=== PATIENT | female | born 1955 | race African-American/Black ===

== ENCOUNTER 2019-07-02 11:12 | Inpatient (IN) | payer MEDICAID ==
[~2019-07-02] VITALS: Ht 165.1 cm; Wt 61.2 kg
--- NOTE | 2019-07-02 11:25 | NUR ---
PT S IN ROOM #1B. DR JOHNSTON EVALUATED THE PT.
[2019-07-02] MEDS ORDERED: IV NORMAL SALINE 500 ML BAG IV ONE (11:30)
[2019-07-02] MEDS ORDERED: LEVA0.6320 IH (11:33)
[2019-07-02] MEDS ORDERED: GUAI200T5 GT (11:33)
[2019-07-02] MEDS ORDERED: BISA10SU95 RC (11:33)
[2019-07-02] MEDS ORDERED: VALP250S3 GT (11:33)
[2019-07-02] MEDS ORDERED: BLOO-140 IN (11:33)
[2019-07-02] MEDS ORDERED: METO100T14 GT (11:33)
[2019-07-02] MEDS ORDERED: ATOR10TA GT (11:33)
[2019-07-02] MEDS ORDERED: DIGO125T GT (11:33)
[2019-07-02] MEDS ORDERED: DOCU50LI GT (11:33)
[2019-07-02] MEDS ORDERED: ZINC1CAP2 GT (11:33)
[2019-07-02] MEDS ORDERED: ASCO500T10 GT (11:33)
[2019-07-02] MEDS ORDERED: PROT946L GT (11:33)
[2019-07-02] MEDS ORDERED: WARF4TAB41 GT (11:33)
[2019-07-02] MEDS ORDERED: ACET325T53 GT (11:33)
[2019-07-02] MEDS ORDERED: LACT1TAB20 GT (11:33)
[2019-07-02] MEDS ORDERED: LISI10TA5 GT (11:33)
[2019-07-02] MEDS ORDERED: ESCI10TA GT (11:33)
[2019-07-02] MEDS ORDERED: ACET325T53 PO (11:33)
[2019-07-02] MEDS ORDERED: LEVE500S9 GT (11:33)
[2019-07-02 11:58] LABS: BASOPHILS % (AUTO) 0.6 % (0.0-2.0); LYMPHOCYTES # (AUTO) 1.8 K/uL (20.0-40.0); MEAN CORPUSCULAR HEMOGLOBIN 30.9 uug (24.7-32.8); MONOCYTES # (AUTO) 0.3 K/uL (2.0-10.0); NEUTROPHILS % (AUTO) 54.7 % (38.5-71.5)
[2019-07-02 12:03] LABS: EOSINOPHILS # (AUTO) 0.5 K/uL (0.0-0.7); EOSINOPHILS % (AUTO) 9.2 % (0.0-7.0); LYMPHOCYTES % (AUTO) 30.8 % (20.5-51.5); MEAN CORPUSCULAR HGB CONC 32 g/dL (32.3-35.6); MEAN CORPUSCULAR VOLUME 95.7 fL (75.5-95.3); MONOCYTES % (AUTO) 4.7 % (0.0-11.0); NEUTROPHILS # (AUTO) 3.2 K/uL (1.8-8.9); PLATELET COUNT (AUTO) 311 K/uL (179-408); RED BLOOD CELL COUNT(AUTO) 2.31 MIL/uL (3.63-4.92); WHITE BLOOD COUNT (AUTO) 5.9 K/uL (3.8-11.8)
[2019-07-02 12:06] LABS: HEMOGLOBIN 7.1 g/dL (10.9-14.3)
[2019-07-02 12:08] LABS: HEMATOCRIT 22.1 % (31.2-41.9)
[2019-07-02] MEDS ORDERED: AZITHROMYCIN 500MG/ D5W 250ML IVPB **ER PYXIS ONLY IV ONE (12:14)
[2019-07-02] MEDS ORDERED: AZITHROMYCIN IV 500 MG in IV DEXTROSE 5% 250 ML IV ONE (12:15)
[2019-07-02 12:23] LABS: CREATININE 0.6 mg/dL (0.6-1.3); TOTAL PROTEIN, SERUM 9.2 g/dL (6.4-8.2)
[2019-07-02] MEDS ORDERED: ACETAMINOPHEN 325 MG TABLET PO PRN (12:30)
[2019-07-02] MEDS ORDERED: MAGNESIUM HYDROXIDE 30 ML LIQUID UDC GT PRN (12:30)
[2019-07-02] MEDS ORDERED: ONDANSETRON 4 MG/2 ML VIAL IV PRN (12:30)
[2019-07-02] MEDS ORDERED: Z GUARD REMEDY PASTE 57 GM TUBE TOP PRN (12:30)
[2019-07-02] MEDS ORDERED: HYDROCODONE/APAP 5-325MG TABLET GT PRN ×2 (12:30→16:30)
[2019-07-02] MEDS ORDERED: TEMAZEPAM 15 MG CAPSULE PO PRN (12:30)
[2019-07-02] MEDS ORDERED: MORPHINE SULFATE 2 MG/1 ML DISP.SYRIN IV PRN (12:30)
[2019-07-02 12:36] LABS: BILIRUBIN,DIRECT 0.1 mg/dL (0.0-0.2); BILIRUBIN,TOTAL 0.3 mg/dL (0.1-1.0); POTASSIUM 5.2 mmol/L (3.5-5.1)
[2019-07-02] MEDS ORDERED: SODIUM POLYSTYRENE SULFONATE 15 G/60 ML LIQUID UDC GT ONE (13:00)
[2019-07-02] MEDS ORDERED: FUROSEMIDE 40 MG/4 ML VIAL IV ONE (13:00)
[2019-07-02] MEDS ORDERED: BISACODYL 10 MG SUPP.RECT RC PRN (13:00)
[2019-07-02] MEDS ORDERED: ALBUTEROL SULFATE 2.5 MG/3 ML NEBU NEB PRN (13:15)
[2019-07-02] MEDS ORDERED: TEMAZEPAM 15 MG CAPSULE GT PRN (13:15)
--- NOTE | 2019-07-02 13:32 | NUR ---
REPORT WAS GIVEN TO ASSISTANT ELEMENTARY TEACHER. PT WAS TRANSFERED TO ROOM #316.
[2019-07-02 13:38] LABS: *BILIRUBIN,URIN NEGATIVE (NEGATIVE); *BLOOD, URINE NEGATIVE (NEGATIVE); *COLOR,URINE YELLOW (YELLOW); *KETONES,URINE NEGATIVE (NEGATIVE); LEUKOCYTE ESTERASE ,URINE 1+ (NEGATIVE); NITRITE, URINE NEGATIVE (NEGATIVE); UGLUCOSE NEGATIVE (NEGATIVE)
--- NOTE | 2019-07-02 13:40 | NUR ---
Patient was transported from ER via gurney in stable condition. Patient with Diagnosis of Severe anemia and Possible GI bleed under care of Dr. Alvarado. Patient is awake and responsive. On Oxygen at 2 L/min, No signs of Pain or discomfort. GTube is patent with clean dry dressing. Patient will have EGD under Dr. Lockwood on 07/03/19 at 4PM, RP daughter signed the consent. All needs attended and met, kept clean and comfortable. Will continue to monitor.
[2019-07-02] MEDS ORDERED: CEFTRIAXONE 1 G in IV DEXTROSE 5% 50 ML IV SCH (14:00)
--- NOTE | 2019-07-02 14:00 | NUR ---
Clarified Order of PRBC by SUMAYA Alvarado, per Dr. Alvarado he did not Order Blood transfusion, unless Hgb is below 7. Called labs and cancelled the PRB that was ordered from the ER by Dr. Anton.
[2019-07-02 14:01] LABS: *CLARITY,URINE SLIGHTLY HAZY (CLEAR)
[2019-07-02 14:03] LABS: MUCUS,URINE FEW /LPF (0-FEW); SQUAMOUS EPITHELIAL CELL,UR FEW /HPF (NONE SEEN)
[2019-07-02] MEDS: VALPROIC ACID 250 MG/5 ML LIQUID UDC GT SCH ×2 (15:07→18:10)
[2019-07-02 15:15] VITALS: BP 101/36
--- NOTE | 2019-07-02 18:27 | NUR ---
Patient in Bed, awake. No signs of distress noted. No SOB. No signs of Pain or discomfort. Patient will have EGD tomorrow at 4PM. RP signed consent. Will endorse to Oncoming Nurse.
[2019-07-02] MEDS ORDERED: ACETAMINOPHEN 325 MG TABLET GT PRN (18:30)
[2019-07-02 20:00] VITALS: BP 128/43
[2019-07-02] MEDS ORDERED: LEVETIRACETAM 250 MG TABLET GT SCH (21:00)
[2019-07-02] MEDS ORDERED: LEVETIRACETAM 250 MG TABLET PO SCH (21:00)
[2019-07-02] MEDS: LEVETIRACETAM 500 MG/5 ML LIQUID UDC GT SCH (21:18)
[2019-07-02] MEDS: METOPROLOL TARTRATE 50 MG TABLET GT SCH (21:19)
[2019-07-02] MEDS: PANTOPRAZOLE SODIUM 40 MG VIAL IV SCH (21:19)
[2019-07-02] MEDS: ATORVASTATIN 10 MG TABLET GT SCH (21:19)
[2019-07-03] VITALS: BP 135/64
[2019-07-03 04:00] VITALS: BP 112/50
[2019-07-03 06:23] LABS: BASOPHILS % (AUTO) 0.6 % (0.0-2.0); EOSINOPHILS # (AUTO) 0.5 K/uL (0.0-0.7); EOSINOPHILS % (AUTO) 8.8 % (0.0-7.0); HEMOGLOBIN 7.7 g/dL (10.9-14.3); LYMPHOCYTES # (AUTO) 1.6 K/uL (20.0-40.0); LYMPHOCYTES % (AUTO) 28.6 % (20.5-51.5); MEAN CORPUSCULAR HEMOGLOBIN 30.2 uug (24.7-32.8); MEAN CORPUSCULAR HGB CONC 32 g/dL (32.3-35.6); MEAN CORPUSCULAR VOLUME 93.8 fL (75.5-95.3); MONOCYTES # (AUTO) 0.3 K/uL (2.0-10.0); MONOCYTES % (AUTO) 5.1 % (0.0-11.0); NEUTROPHILS # (AUTO) 3.1 K/uL (1.8-8.9); NEUTROPHILS % (AUTO) 56.9 % (38.5-71.5); PLATELET COUNT (AUTO) 302 K/uL (179-408); RED BLOOD CELL COUNT(AUTO) 2.56 MIL/uL (3.63-4.92); WHITE BLOOD COUNT (AUTO) 5.4 K/uL (3.8-11.8)
[2019-07-03 06:48] LABS: CREATININE 0.6 mg/dL (0.6-1.3); MAGNESIUM 2.3 mg/dL (1.8-2.4); PHOSPHOROUS 4.4 mg/dL (2.5-4.9); POTASSIUM 4.2 mmol/L (3.5-5.1)
--- NOTE | 2019-07-03 06:56 | NUR ---
RECEIVED PATIENT IN BED, AO X 1. NO SHORTNESS OF BREATH OR DISTRESS NOTED. A. FIB/ A. FLUTTER ON THE TELE MONITOR WITH HEART RATE IN THE 70s. IMMEDIATE NEEDS ATTENDED. WILL CONTINUE TO MONITOR.
--- NOTE | 2019-07-03 06:57 | NUR ---
PATIENT SLEPT WELL THROUGHOUT THE NIGHT. G-TUBE MEDICATIONS TOLERATED WITH MINIMAL RESIDUAL. PATIENT ALSO GIVEN PAIN MEDICATION BECAUSE PATIENT MOANING AND HAD FACIAL GRIMACING CONCURRENTLY FOR A PERIOD OF TIME. MEDICATED APPROPRIATELY WITH PRN PAIN MEDICATION. NPO AFTER MIDNIGHT. A. FIB/ A FLUTTER ON THE MONITOR WITH VENTRICULAR PACING, HEART RATE IN THE 70s.
[2019-07-03 07:02] LABS: *OCCULT BLOOD STOOL NEGATIVE (NEGATIVE)
[2019-07-03] MEDS ORDERED: ESCITALOPRAM OXALATE 10 MG TABLET GT SCH (09:00)
[2019-07-03] MEDS ORDERED: MORPHINE SULFATE 4 MG/1 ML DISP.SYRIN IV PRN (10:45)
[2019-07-03] MEDS: CEFTRIAXONE 1 G in IV DEXTROSE 5% 50 ML IV SCH (11:39)
[2019-07-03 12:00] VITALS: BP 136/64
[2019-07-03] MEDS ORDERED: AZITHROMYCIN IV 500 MG in IV DEXTROSE 5% 250 ML IV SCH (12:00)
[2019-07-03] MEDS: PANTOPRAZOLE SODIUM 40 MG VIAL IV SCH ×2 (12:09→21:25)
[2019-07-03] MEDS: VALPROIC ACID 250 MG/5 ML LIQUID UDC GT SCH ×3 (13:00→17:40)
[2019-07-03 14:55] VITALS: BP 121/48
--- NOTE | 2019-07-03 15:19 | NUR ---
Patient daughter request for deep nasal suction, Respiratory Therapist eval and declines treatment at this time. Says patient lung sounds clear. Investigative Agent defers this as it may make patient breathing more of a problem than benefit. Patient oral suction by operative team prior to transfer down to perform procedure. Brenton Calderon RN
[2019-07-03 16:17] VITALS: BP 136/64
[2019-07-03] MEDS ORDERED: WARFARIN SODIUM 5 MG TABLET GT ONE (17:30)
[2019-07-03] MEDS: DIGOXIN 125 MCG TABLET GT SCH (17:40)
[2019-07-03] MEDS: ZINC SULFATE 220 MG CAPSULE GT SCH (17:40)
[2019-07-03] MEDS: METOPROLOL TARTRATE 50 MG TABLET GT SCH ×2 (17:40→21:00)
[2019-07-03] MEDS: ASCORBIC ACID 500 MG TABLET GT SCH (17:40)
[2019-07-03] MEDS: LISINOPRIL 10 MG TABLET GT SCH (17:40)
[2019-07-03] MEDS: DOCUSATE SODIUM 100 MG/10 ML LIQUID UDC GT SCH (17:40)
[2019-07-03] MEDS: LEVETIRACETAM 500 MG/5 ML LIQUID UDC GT SCH ×2 (17:41→21:25)
[2019-07-03] MEDS ORDERED: JEVITY 1.2 1000 ML LIQUID GT PRN (18:00)
--- NOTE | 2019-07-03 19:40 | NUR ---
RECEIVED PATIENT AWAKE IN BED WITH FAMILY MEMBERS AT THE BEDSIDE. AO X 1. PATIENT NONVERBAL. IV IN RIGHT FOREARM 20G FLUSHING, PATENT, AND INTACT. NO SHORTNESS OF BREATH NOTED. TELE MONITOR SHOWS A. FIB WITH VENTRICULAR PACING WITH HEART RATE IN THE 70s. SAFETY PRECAUTIONS IN PLACE. WILL CONTINUE TO MONITOR PATIENT.
[2019-07-03] MEDS: ACETAMINOPHEN 650 MG/20.3 ML LIQUID UDC GT PRN (20:03)
[2019-07-03] MEDS ORDERED: CEFAZOLIN 1 G VIAL IM ONE (20:09)
[2019-07-03] MEDS ORDERED: IV LACTATED RINGERS SOLUTION 1,000 ML BAG IV ONE (20:09)
[2019-07-03] MEDS ORDERED: ETOMIDATE 20 MG/10 ML VIAL IV ONE (20:09)
[2019-07-03] MEDS ORDERED: LIDOCAINE-MPF 2% 5 ML VIAL IJ ONE (20:09)
[2019-07-03] MEDS ORDERED: IRR STERIL WATER FOR IRR 1000 ML BOTTLE IR ONE (20:09)
[2019-07-03 20:20] VITALS: BP 113/46
[2019-07-03] MEDS: ATORVASTATIN 10 MG TABLET GT SCH (21:25)
[2019-07-03] MEDS: ENOXAPARIN SODIUM 60 MG/0.6 ML DISP.SYRIN SQ SCH (22:00)
[2019-07-04 00:40] VITALS: BP 98/40
[2019-07-04 00:50] VITALS: BP 100/44
[2019-07-04] MEDS ORDERED: IV NORMAL SALINE 500 ML IV ONE ×2 (01:45→15:00)
--- NOTE | 2019-07-04 02:00 | NUR ---
PATIENT HAS HYPOTENSION WITH MULTIPLE READINGS IN THE 80's/40's. CONTACTED DR. SAEED GOLDSMITH AND RECEIVED ORDER TO GIVE 500ML OF NS BOLUS.
--- NOTE | 2019-07-04 03:30 | NUR ---
IV BOLUS FINISHED, PATIENT TOLERATED BOLUS WITH NO ACUTE CHANGE IN CONDITION. BLOOD PRESSURE READINGS NORMALIZED IN THE 100/110's (SBP) AND DBP IN THE 50's
[2019-07-04 05:31] VITALS: BP 120/53
[2019-07-04 06:49] LABS: CREATININE 0.8 mg/dL (0.6-1.3); POTASSIUM 3.2 mmol/L (3.5-5.1)
[2019-07-04 06:54] LABS: BASOPHILS % (AUTO) 0.5 % (0.0-2.0); EOSINOPHILS # (AUTO) 0.4 K/uL (0.0-0.7); EOSINOPHILS % (AUTO) 7.6 % (0.0-7.0); HEMATOCRIT 24.6 % (31.2-41.9); HEMOGLOBIN 8.1 g/dL (10.9-14.3); LYMPHOCYTES # (AUTO) 1.7 K/uL (20.0-40.0); LYMPHOCYTES % (AUTO) 37.7 % (20.5-51.5); MEAN CORPUSCULAR HEMOGLOBIN 31.6 uug (24.7-32.8); MEAN CORPUSCULAR HGB CONC 33 g/dL (32.3-35.6); MEAN CORPUSCULAR VOLUME 95.6 fL (75.5-95.3); MONOCYTES # (AUTO) 0.3 K/uL (2.0-10.0); MONOCYTES % (AUTO) 6.4 % (0.0-11.0); NEUTROPHILS # (AUTO) 2.2 K/uL (1.8-8.9); NEUTROPHILS % (AUTO) 47.8 % (38.5-71.5); PLATELET COUNT (AUTO) 268 K/uL (179-408); RED BLOOD CELL COUNT(AUTO) 2.57 MIL/uL (3.63-4.92); WHITE BLOOD COUNT (AUTO) 4.6 K/uL (3.8-11.8)
--- NOTE | 2019-07-04 07:25 | NUR ---
RECEIVED PATIENT RESTING IN BED. NO ACUTE DISTRESS NOTED. BED IN LOWEST POSITION, SIDE RAILS UP X2, CALL LIGHT WITHIN REACH. WILL CONTINUE TO MONITOR.
[2019-07-04] MEDS ORDERED: PROTEIN SUPPLEMENT (PROSTAT) 30 ML LIQUID GT SCH (08:00)
[2019-07-04] MEDS: VALPROIC ACID 250 MG/5 ML LIQUID UDC GT SCH ×3 (08:16→16:41)
[2019-07-04] MEDS: LEVETIRACETAM 500 MG/5 ML LIQUID UDC GT SCH (08:16)
[2019-07-04] MEDS: DOCUSATE SODIUM 100 MG/10 ML LIQUID UDC GT SCH (08:16)
[2019-07-04] MEDS: ZINC SULFATE 220 MG CAPSULE GT SCH (08:17)
[2019-07-04] MEDS: METOPROLOL TARTRATE 50 MG TABLET GT SCH (08:17)
[2019-07-04] MEDS: ASCORBIC ACID 500 MG TABLET GT SCH (08:17)
[2019-07-04] MEDS: PANTOPRAZOLE SODIUM 40 MG VIAL IV SCH (08:17)
[2019-07-04] MEDS: LISINOPRIL 10 MG TABLET GT SCH (08:17)
[2019-07-04] MEDS: DIGOXIN 125 MCG TABLET GT SCH (08:17)
[2019-07-04] MEDS: ENOXAPARIN SODIUM 60 MG/0.6 ML DISP.SYRIN SQ SCH (08:18)
[2019-07-04] MEDS: ACETAMINOPHEN 650 MG/20.3 ML LIQUID UDC GT PRN ×2 (09:15→18:34)
[2019-07-04] MEDS: CEFTRIAXONE 1 G in IV DEXTROSE 5% 50 ML IV SCH (10:47)
[2019-07-04 11:14] VITALS: BP 98/43
[2019-07-04] MEDS ORDERED: POTASSIUM CHLORIDE 20 MEQ POWDER PACKET GT ONE (11:30)
[2019-07-04] MEDS ORDERED: CEPH-570 GT (11:30)
[2019-07-04 15:12] VITALS: BP 117/47
[2019-07-04] MEDS ORDERED: WARFARIN SODIUM 4 MG TABLET PO SCH (17:00)
--- NOTE | 2019-07-04 18:42 | NUR ---
PATIENT RESTED INTERMITTENTLY THROUGHOUT DAY. PATIENT BP RUNNING LOW IV BOLUS ADMINISTERED. GTUBE PATIENT. NO ACUTE DISTRESS NOTED THROUGHOUT SHIFT. SAFETY MEASURES PROVIDED. WILL ENDORSE TO ONCOMING NURSE.
--- NOTE | 2019-07-04 20:05 | NUR ---
PT WHEELED OUT VIA GURNEY BY [id number]. PT IN NO ACUITE DISTRESS. DISCHARGE PAPERS GIVEN TO KRANTHI LONDON. [facility]SE. ID BAND TAKEN OFF. IV TAKEN OFF. G-TUBE CLAMP. SAFETY PROVIDED. PT ON 3L NASAL CANNULA. PT VITAL SIGNS WITHIN NORMAL LIMIT. PT STABLE.
[2019-07-05] MEDS ORDERED: WARFARIN SODIUM 4 MG TABLET PO SCH ×2 (17:00)
== END 2019-07-04 20:10 | DRG 241 ==
LOC: ER 11:12 → TELE3 13:05
PROVIDERS: ADMIT Nurse Practitioner Acute Care; ATTEND Nurse Practitioner Acute Care
PROC: 0D20XUZ Change Feeding Device in Upper Intestinal Tract, External Approach (ICD-10-PCS; principal; 2019-07-03)
PROC: 0DJ08ZZ Inspection of Upper Intestinal Tract, Via Natural or Artificial Opening Endoscopic (ICD-10-PCS; principal; 2019-07-03)
DX: K29.71 Gastritis, unspecified, with bleeding (principal); G93.41 Metabolic encephalopathy; I50.33 Acute on chronic diastolic (congestive) heart failure; R53.2 Functional quadriplegia; K94.29 Other complications of gastrostomy; D68.59 Other primary thrombophilia; E11.51 Type 2 diabetes mellitus with diabetic peripheral angiopathy without gangrene; I11.0 Hypertensive heart disease with heart failure; E87.5 Hyperkalemia; I48.19 Other persistent atrial fibrillation; R13.10 Dysphagia, unspecified; I49.5 Sick sinus syndrome; E11.9 Type 2 diabetes mellitus without complications; G40.909 Epilepsy, unspecified, not intractable, without status epilepticus; Z79.01 Long term (current) use of anticoagulants; Z95.0 Presence of cardiac pacemaker; I69.391 Dysphagia following cerebral infarction; Z74.01 Bed confinement status; Z95.2 Presence of prosthetic heart valve; Z87.440 Personal history of urinary (tract) infections; Z79.899 Other long term (current) drug therapy; I25.10 Atherosclerotic heart disease of native coronary artery without angina pectoris; I69.320 Aphasia following cerebral infarction; I69.354 Hemiplegia and hemiparesis following cerebral infarction affecting left non-dominant side; N39.0 Urinary tract infection, site not specified; B96.89 Other specified bacterial agents as the cause of diseases classified elsewhere; F41.9 Anxiety disorder, unspecified; F03.90 Unspecified dementia, unspecified severity, without behavioral disturbance, psychotic disturbance, mood disturbance, and anxiety; E78.5 Hyperlipidemia, unspecified; I09.9 Rheumatic heart disease, unspecified; D50.0 Iron deficiency anemia secondary to blood loss (chronic)
CPT/HCPCS: 36415; 70030-TC; 71045; 83605; 83735; 84100; 85025; 85610; 85730; 86850; 86900; 86901; 86920; 87040; 87086; 87400; 93005; 93307; A4217; A4663; C1758; C9113; G0378; J0456; J0690; J0696; J1650; J1940; J2270; J3490; J7040; J7060; J7120

== ENCOUNTER 2020-02-05 00:01 | Inpatient (IN) | payer MEDICAID ==
[2020-02-05] VITALS (12 sets, daily range): BP systolic 115–154; BP diastolic 55–96
[~2020-02-05] VITALS: Ht 165.1 cm; Wt 74.8 kg
[~2020-02-05 00:01] MED LIST: ACET325T53 GT; ACET325T53 PO; ASCO500T10 GT; ATOR10TA GT; BISA10SU95 RC; BLOO-140 IN; CEPH-570 GT; DIGO125T GT; DOCU50LI GT; ESCI10TA GT; GUAI200T5 GT; LACT1TAB20 GT; LEVA0.6320 IH; LEVE500S9 GT; LISI10TA5 GT; METO100T14 GT; PROT946L GT; VALP250S3 GT; WARF4TAB41 GT; ZINC1CAP2 GT
[2020-02-05] MEDS ORDERED: SENNA (00:36)
[2020-02-05] MEDS ORDERED: METO100T14 GT (00:36)
[2020-02-05] MEDS ORDERED: FERR220S14 GT (00:36)
[2020-02-05] MEDS ORDERED: SIMV20TA2 GT (00:36)
[2020-02-05] MEDS ORDERED: INSU100V39 SQ (00:36)
[2020-02-05] MEDS ORDERED: ONDA4VIA52 IV (00:36)
[2020-02-05] MEDS ORDERED: HYDR100V6 IV (00:36)
[2020-02-05] MEDS ORDERED: IPRA0.2S6 NEB (00:36)
[2020-02-05] MEDS ORDERED: LORA0.5T GT (00:36)
[2020-02-05] MEDS ORDERED: ERGO500014 GT (00:36)
[2020-02-05] MEDS ORDERED: DOCUSATE (00:36)
[2020-02-05] MEDS ORDERED: CEFTRIAXONE 1 G in IV DEXTROSE 5% 50 ML IV ONE (01:00)
[2020-02-05] MEDS ORDERED: AZITHROMYCIN IV 500 MG in IV DEXTROSE 5% 250 ML IV ONE (01:00)
[2020-02-05 01:15] LABS: ABG BASE EXCESS 5.6 mmol/L; ABG HCO3 29.8 mmol/L; ABG PCO2 41.9 mmHg (35.0-45.0); ABG PO2 127.3 mmHg (75.0-100.0); ABG SITE LEFT RADIAL; ABG TOTAL HEMOGLOBIN 8.8 G/dL (12.0-16.0); COHb 1.6 % (0.5-1.5); MetHb 0.4 % (0.0-1.5); O2Hb 97.1 % (94.0-97.0); VENT MODE Nasal Cannula
[2020-02-05] MEDS ORDERED: CEFTRIAXONE /D5W 50ML IVPB **ER PYXIS IV ONE (01:31)
--- NOTE | 2020-02-05 02:00 | NUR ---
Unable to draw blood from pt multiple times. Dr. Pastor stated okay to start ATB
[2020-02-05 02:35] LABS: *BILIRUBIN,URIN NEGATIVE (NEGATIVE); *CLARITY,URINE CLEAR (CLEAR); *COLOR,URINE YELLOW (YELLOW); *KETONES,URINE NEGATIVE (NEGATIVE); LEUKOCYTE ESTERASE ,URINE TRACE (NEGATIVE); NITRITE, URINE NEGATIVE (NEGATIVE); PH,URINE >=9.0 (5.0-8.0); UGLUCOSE NEGATIVE (NEGATIVE)
[2020-02-05 02:36] LABS: *BLOOD, URINE TRACE LYSED (NEGATIVE)
[2020-02-05 02:40] LABS: BASOPHILS # (AUTO) 0.1 K/uL (0.0-8.0); BASOPHILS % (AUTO) 0.9 % (0.0-2.0); EOSINOPHILS # (AUTO) 0.1 K/uL (0.0-0.7); HEMATOCRIT 25.2 % (31.2-41.9); HEMOGLOBIN 8.2 g/dL (10.9-14.3); LYMPHOCYTES % (AUTO) 22.3 % (20.5-51.5); MEAN CORPUSCULAR HEMOGLOBIN 31.7 uug (24.7-32.8); MEAN CORPUSCULAR HGB CONC 33 g/dL (32.3-35.6); MONOCYTES # (AUTO) 0.4 K/uL (2.0-10.0); MONOCYTES % (AUTO) 4.1 % (0.0-11.0); NEUTROPHILS # (AUTO) 6.3 K/uL (1.8-8.9); NEUTROPHILS % (AUTO) 71.7 % (38.5-71.5); PLATELET COUNT (AUTO) 207 K/uL (179-408); WHITE BLOOD COUNT (AUTO) 8.8 K/uL (3.8-11.8)
[2020-02-05 02:41] LABS: CREATININE 0.8 mg/dL (0.6-1.3); POTASSIUM 4.5 mmol/L (3.5-5.1)
[2020-02-05] MEDS ORDERED: AZITHROMYCIN 500MG/ D5W 250ML IVPB **ER PYXIS ONLY IV ONE (02:48)
[2020-02-05 02:58] LABS: BILIRUBIN,DIRECT 0.1 mg/dL (0.0-0.2); BILIRUBIN,TOTAL 0.5 mg/dL (0.2-1.0); TOTAL PROTEIN, SERUM 7.3 g/dL (6.4-8.2)
[2020-02-05 03:16] LABS: BACTERIA,URINE NONE SEEN /HPF (NONE SEEN)
[2020-02-05] MEDS ORDERED: ALBUTEROL SULFATE 8 GM HFA.AER.AD IH PRN (03:30)
[2020-02-05] MEDS ORDERED: FUROSEMIDE 40 MG/4 ML VIAL IV ONE (03:30)
[2020-02-05] MEDS ORDERED: ONDANSETRON 4 MG/2 ML VIAL IV PRN (03:30)
[2020-02-05] MEDS ORDERED: AZITHROMYCIN IV 500 MG in IV DEXTROSE 5% 250 ML IV SCH (03:30)
--- NOTE | 2020-02-05 03:37 | NUR ---
called for Tele Bed Room 324
--- NOTE | 2020-02-05 04:57 | NUR ---
pt in bed. asleep no s/s of distress no sob noted safety precaution in place. bed locked, lowest position will continue to monitor pt
[2020-02-05] MEDS ORDERED: FUROSEMIDE 40 MG/4 ML VIAL ONE (05:23)
--- NOTE | 2020-02-05 06:03 | NUR ---
report given to SOWMYA Rose
[2020-02-05 07:08] LABS: ABG BASE EXCESS 5.9 mmol/L; ABG HCO3 29.4 mmol/L; ABG PCO2 38.4 mmHg (35.0-45.0); ABG PH 7.502 (7.350-7.450); ABG PO2 91.7 mmHg (75.0-100.0); ABG SITE RIGHT RADIAL; COHb 1.4 % (0.5-1.5); MetHb 0.4 % (0.0-1.5); O2Hb 95.6 % (94.0-97.0); VENT MODE HF - Aquinox
--- NOTE | 2020-02-05 07:15 | NUR ---
Inspector [employer] assumes care. Patient is seen resting with eyes close. Eyes open with soft touch. Eyes are tracking. Patient is non-verbal, +special nasal cannula on@35% FiO2. Facial mask on patient. We are observing droplet isolation in room 5 per MD, no positive or negative pressure available in room 5. MD is aware. Patient has contracted extremities, gtube is clamped, head of bead elevated above 30 degrees, for CCU transfer after 0730am.
--- NOTE | 2020-02-05 07:17 | NUR ---
*IV zithromax iv given at 0250.
--- NOTE | 2020-02-05 07:53 | NUR ---
Dr Jara came to ER & evaluated the patient. Patient will go to [facility] as a ADALID overflow & a a person of interest for COVID-19. Patient's daughter was updated frequently thru telephone.
--- NOTE | 2020-02-05 08:34 | NUR ---
Received report from ER nurse and patient transferred from [facility] to [facility]. Patient is on 4.5L nasal cannula, saturation of 100%, a-fib on the monitor, Nonverbal and moaning occasionally. Patient is severely contracted and has a gtube which is clamped, and Marcano catheter which is draining to gravity. Wound documentation complete and pictures taken. Consult for wound, and air mattress ordered.
--- NOTE | 2020-02-05 09:59 | NUR ---
Contacted Dr. Chavez to obtain orders for Midline insertion as patient may need multiple antibiotics for diagnosis. Received orders for midline insertion.
[2020-02-05 11:31] LABS: BASOPHILS # (AUTO) 0.1 K/uL (0.0-8.0); EOSINOPHILS # (AUTO) 0.1 K/uL (0.0-0.7); EOSINOPHILS % (AUTO) 2.1 % (0.0-7.0); HEMATOCRIT 24.5 % (31.2-41.9); HEMOGLOBIN 7.9 g/dL (10.9-14.3); LYMPHOCYTES # (AUTO) 1.5 K/uL (20.0-40.0); MEAN CORPUSCULAR HEMOGLOBIN 31.5 uug (24.7-32.8); MEAN CORPUSCULAR HGB CONC 32 g/dL (32.3-35.6); MEAN CORPUSCULAR VOLUME 97.8 fL (75.5-95.3); MONOCYTES # (AUTO) 0.4 K/uL (2.0-10.0); MONOCYTES % (AUTO) 5.6 % (0.0-11.0); NEUTROPHILS # (AUTO) 4.6 K/uL (1.8-8.9); NEUTROPHILS % (AUTO) 69.3 % (38.5-71.5); PLATELET COUNT (AUTO) 187 K/uL (179-408); RED BLOOD CELL COUNT(AUTO) 2.51 MIL/uL (3.63-4.92); WHITE BLOOD COUNT (AUTO) 6.6 K/uL (3.8-11.8)
[2020-02-05 11:55] LABS: CREATININE 0.6 mg/dL (0.6-1.3); POTASSIUM 3.7 mmol/L (3.5-5.1)
[2020-02-05 12:00] LABS: BILIRUBIN,TOTAL 0.6 mg/dL (0.2-1.0)
[2020-02-05] MEDS ORDERED: FUROSEMIDE 20 MG/2 ML VIAL IV ONE (12:00)
[2020-02-05] MEDS ORDERED: FAMO-132 PO (12:36)
[2020-02-05] MEDS ORDERED: ATOR10TA GT (12:36)
[2020-02-05] MEDS ORDERED: ZINC1CAP2 GT (12:36)
[2020-02-05] MEDS ORDERED: VALP250S22 GT (12:36)
[2020-02-05] MEDS ORDERED: INSU200I SQ (12:36)
[2020-02-05] MEDS ORDERED: WARF7.5T23 GT (12:36)
--- NOTE | 2020-02-05 14:39 | NUR ---
Contacted Dr. Callejas to review medications that need to be continued again results of PT/INR and digoxin levels received.
[2020-02-05] MEDS ORDERED: BISACODYL 10 MG SUPP.RECT RC PRN (14:45)
--- NOTE | 2020-02-05 15:33 | NUR ---
Patient seen by Dr. Júnior Chavez, Full report given, discussed medications that need to be reconciled, and tube feeding requirements. Alerted to obtain pt/inr before initiation of Coumadin and Digoxin levels before restarting.
[2020-02-05] MEDS: GLUCERNA 1.2 1000ML LIQUID GT PRN ×2 (15:55→16:10)
[2020-02-05] MEDS: ACETAMINOPHEN 650 MG/20.3 ML LIQUID UDC GT PRN ×2 (15:55→16:10)
[2020-02-05] MEDS: WARFARIN SODIUM 7.5 MG TABLET GT SCH (16:09)
[2020-02-05] MEDS: levETIRAcetam 500 MG/5 ML LIQUID UDC GT SCH ×2 (16:09→21:26)
[2020-02-05] MEDS: VALPROIC ACID 250 MG/5 ML LIQUID UDC GT SCH (16:10)
[2020-02-05] MEDS: FAMOTIDINE 20 MG TABLET PO SCH (16:10)
--- NOTE | 2020-02-05 16:14 | NUR ---
Patient seen by ID SUMAYA byrne.
[2020-02-05] MEDS ORDERED: CEFTRIAXONE 1 G VIAL IV SCH (16:30)
[2020-02-05] MEDS: DIGOXIN 125 MCG TABLET GT SCH (18:18)
--- NOTE | 2020-02-05 18:55 | NUR ---
Patient continues to be afib on the monitor, 4.5 L nasal cannula saturation of 100%, hemodynamically stable, no distress noted at this time. Air mattress inflated, arellano draining clear yellow urine. Side rails padded, and suction equipment set up. Bed in low position, side rails upx2. All alarms checked for accuracy.
--- NOTE | 2020-02-05 19:45 | NUR ---
RECEIVED PT VERBALLY NONRESPONSIVE , OPENS HER EYES TO VERBAL STIMULI. MIDLINE INTACT & PATENT ON GAMALIEL & HEP LOCK INTACT & PATENT ON R HAND. G-TUBE INTACT CHECKED PLACEMENT & CHECKED RESIDUAL 10CC NOTED. ON O2 @ 3LNC W/ O2 SAT OF 100%. C-SCOPE AFIB CONTROLLED. AFEBRILE.
--- NOTE | 2020-02-05 20:00 | NUR ---
REPORT GIVEN TO KIZZY DENG & TRANSFERED PT TO RM 314 VIA BED TELEMETRY PT.
[2020-02-05] MEDS: ATORVASTATIN 10 MG TABLET GT SCH (21:26)
[2020-02-05] MEDS: METOPROLOL TARTRATE 50 MG TABLET GT SCH (21:39)
[2020-02-06] MEDS: CEFTRIAXONE 1 G in IV DEXTROSE 5% 50 ML IV SCH (00:20)
[2020-02-06 01:07] VITALS: BP 149/69
[2020-02-06] MEDS: AZITHROMYCIN IV 500 MG in IV DEXTROSE 5% 250 ML IV SCH (02:03)
--- NOTE | 2020-02-06 04:26 | NUR ---
Received patient from ER via hospital bed. Vital signs stable with T:98.6. No acute distress or SOB was noted. On air mattress. On 3 L O2 via NC. Patient is non-verbal, only making noises. All extremities are severely contracted. Patient has loose teeth and high risk for aspiration. G-tub in place, Tube feeding of Glucerna 1.2 at 60 ml/hour running. IV in right hand and Midline in right upper arm, patent, no sign of inflammation. Marcano catheter draining well yellow urine. Oral care and skin care rendered as ordered. IV antibiotics administered. All due medication given through the G tube and well tolerated. Repositioned every 2 hours. Safety measures maintained. Aspiration precaution observed. Head of the bed elevated. Bed in lock position, Side rails up x2 for safety. Continue to monitor.
--- NOTE | 2020-02-06 04:44 | NUR ---
Patient had 2 bowel movements, loose stool, medium amount, brownish color, malodor. No other symptoms noted. Continue to monitor and will endorse to the oncoming nurse.
[2020-02-06 05:35] VITALS: BP 128/59
[2020-02-06 07:04] LABS: BASOPHILS # (AUTO) 0.1 K/uL (0.0-8.0); BASOPHILS % (AUTO) 0.8 % (0.0-2.0); EOSINOPHILS # (AUTO) 0.2 K/uL (0.0-0.7); HEMATOCRIT 25.8 % (31.2-41.9); HEMOGLOBIN 8.4 g/dL (10.9-14.3); LYMPHOCYTES # (AUTO) 1.2 K/uL (20.0-40.0); MEAN CORPUSCULAR HEMOGLOBIN 31.7 uug (24.7-32.8); MEAN CORPUSCULAR HGB CONC 33 g/dL (32.3-35.6); MEAN CORPUSCULAR VOLUME 97.2 fL (75.5-95.3); MONOCYTES # (AUTO) 0.4 K/uL (2.0-10.0); MONOCYTES % (AUTO) 5.5 % (0.0-11.0); NEUTROPHILS # (AUTO) 5.2 K/uL (1.8-8.9); NEUTROPHILS % (AUTO) 73.7 % (38.5-71.5); PLATELET COUNT (AUTO) 212 K/uL (179-408); RED BLOOD CELL COUNT(AUTO) 2.66 MIL/uL (3.63-4.92); WHITE BLOOD COUNT (AUTO) 7.1 K/uL (3.8-11.8)
[2020-02-06 07:13] LABS: CREATININE 0.7 mg/dL (0.6-1.3); MAGNESIUM 1.8 mg/dL (1.8-2.4); PHOSPHOROUS 3.8 mg/dL (2.5-4.9); POTASSIUM 4.2 mmol/L (3.5-5.1)
--- NOTE | 2020-02-06 08:00 | NUR ---
Received patient laying in bed, patient is aphasic but eyes are open. No signs of respiratory distress noted at this time. Patient is saturating well on 2 L of oxygen nasal cannula. IV noted on the right hand 22 gauge as well as a upper arm midline. Patient is severely contracted but redness was noted on the right big toes as well as partial thickness loss on the medial surface of the left plantar. safety precautions in place bed in the lowest position, locked with alarm activated and padding on side rails as a seizure precaution. Will continue to monitor.
[2020-02-06] MEDS ORDERED: SIMVASTATIN 20 MG TABLET GT SCH (09:00)
[2020-02-06] MEDS: levETIRAcetam 500 MG/5 ML LIQUID UDC GT SCH ×2 (09:19→20:13)
[2020-02-06] MEDS: FERROUS SULFATE 300 MG/5 ML LIQUID UDC GT SCH (09:19)
[2020-02-06] MEDS: VALPROIC ACID 250 MG/5 ML LIQUID UDC GT SCH ×2 (09:19→17:36)
[2020-02-06] MEDS: FAMOTIDINE 20 MG TABLET PO SCH ×2 (09:20→17:36)
[2020-02-06] MEDS: ACETAMINOPHEN 650 MG/20.3 ML LIQUID UDC GT PRN ×2 (09:20→20:22)
[2020-02-06] MEDS: DOCUSATE SODIUM 100 MG/10 ML LIQUID UDC GT SCH (09:20)
[2020-02-06] MEDS: ASCORBIC ACID 500 MG TABLET GT SCH (09:21)
[2020-02-06] MEDS: ZINC SULFATE 220 MG CAPSULE GT SCH (09:21)
[2020-02-06] MEDS: LISINOPRIL 20 MG TABLET GT SCH (09:28)
[2020-02-06] MEDS: DIGOXIN 125 MCG TABLET GT SCH (09:29)
[2020-02-06] MEDS: METOPROLOL TARTRATE 50 MG TABLET GT SCH ×2 (09:29→20:12)
[2020-02-06] MEDS: WARFARIN SODIUM 7.5 MG TABLET GT SCH (09:35)
[2020-02-06 13:49] VITALS: BP 101/42
[2020-02-06] MEDS: GLUCERNA 1.2 1000ML LIQUID GT PRN (14:28)
[2020-02-06 16:36] VITALS: BP 148/59
--- NOTE | 2020-02-06 18:38 | NUR ---
Patient is resting comfortably in bed. No signs of respiratory distress at this time, patient is saturating well on 2 L of oxygen. Safety precautions in place, bed is locked and in the lowest position with side rails padded as a seizure precautions. Will endorse to the oncoming nurse.
--- NOTE | 2020-02-06 19:30 | NUR ---
RECEIVED PT IN NO ACUTE RESPIRATORY DISTRESS. IV INTACT. DAMON INTACT AND DRAINING YELLOW COLORED URINE. SAFETY AND COMFORT PROVIDED. WILL CONTINUE TO MONITOR.
[2020-02-06] MEDS: ATORVASTATIN 10 MG TABLET GT SCH (20:12)
[2020-02-06 20:14] VITALS: BP 122/49
[2020-02-07] MEDS: CEFTRIAXONE 1 G in IV DEXTROSE 5% 50 ML IV SCH (00:01)
[2020-02-07 00:06] VITALS: BP 103/58
[2020-02-07] MEDS: AZITHROMYCIN IV 500 MG in IV DEXTROSE 5% 250 ML IV SCH (02:10)
[2020-02-07] MEDS: ACETAMINOPHEN 650 MG/20.3 ML LIQUID UDC GT PRN ×3 (04:14→20:04)
[2020-02-07 04:52] VITALS: BP 120/54
[2020-02-07 06:21] LABS: BASOPHILS % (AUTO) 0.7 % (0.0-2.0); EOSINOPHILS # (AUTO) 0.1 K/uL (0.0-0.7); EOSINOPHILS % (AUTO) 3.1 % (0.0-7.0); HEMATOCRIT 25.5 % (31.2-41.9); HEMOGLOBIN 8.4 g/dL (10.9-14.3); LYMPHOCYTES # (AUTO) 1.1 K/uL (20.0-40.0); LYMPHOCYTES % (AUTO) 25.4 % (20.5-51.5); MEAN CORPUSCULAR HEMOGLOBIN 31.9 uug (24.7-32.8); MEAN CORPUSCULAR HGB CONC 33 g/dL (32.3-35.6); MONOCYTES # (AUTO) 0.3 K/uL (2.0-10.0); MONOCYTES % (AUTO) 6.1 % (0.0-11.0); NEUTROPHILS # (AUTO) 2.9 K/uL (1.8-8.9); NEUTROPHILS % (AUTO) 64.7 % (38.5-71.5); PLATELET COUNT (AUTO) 199 K/uL (179-408); RED BLOOD CELL COUNT(AUTO) 2.62 MIL/uL (3.63-4.92); WHITE BLOOD COUNT (AUTO) 4.4 K/uL (3.8-11.8)
--- NOTE | 2020-02-07 06:29 | NUR ---
PT SLEPT INTERMITTENTLY. PT IN NO ACUTE DISTRESS. IV INTACT. DAMON CATHETER INTACT AND DRAINING WELL. PT ON 3L NASAL CANNULA PRESCRIBED MEDICATION GIVEN AND PT TOLERATED IT WELL. TYLENOL 650 MG GIVEN AT 2021H PRN FOR PAIN. PT TOLERATED IT WELL AT 413H PT GIVEN TYLENOL 20.3ML PRN FOR PAIN. PT TURNED AND REPOSITIONED. SAFETY AND COMFORT PROVIDED. ALL NEEDS ARE MET. WILL ENDORSE TO INCOMING NURSE FOR CONTINUITY OF CARE.
[2020-02-07 06:37] LABS: CREATININE 0.7 mg/dL (0.6-1.3); MAGNESIUM 1.9 mg/dL (1.8-2.4); PHOSPHOROUS 4.2 mg/dL (2.5-4.9); POTASSIUM 4.7 mmol/L (3.5-5.1)
--- NOTE | 2020-02-07 07:20 | NUR ---
RECEIVED PATIENT IN BED AWAKE WITH EYES OPEN WATCHING TV NON VERALALL NEEDS ANTICIPATED AND SATISFIED ON FIRST STEP LEÓN TURNED AND REPOSITIONED Q2H HOB UP ON O2 AT 2L/M WITH NO S/S OF SOB AT THIS TIME GT FEEDING IS OFF WILL RECONNECT AT 10 AM ORDERED.REMAIN ON PUI STATUS AT THIS TIME PENDING RESULT OF THE COVID TEST MADE COMFORTABLE WILL CONTINUE TO OBSERVE.
[2020-02-07] MEDS: FERROUS SULFATE 300 MG/5 ML LIQUID UDC GT SCH (08:22)
[2020-02-07] MEDS: ZINC SULFATE 220 MG CAPSULE GT SCH (08:22)
[2020-02-07] MEDS: VALPROIC ACID 250 MG/5 ML LIQUID UDC GT SCH ×2 (08:22→17:08)
[2020-02-07] MEDS: levETIRAcetam 500 MG/5 ML LIQUID UDC GT SCH ×2 (08:22→20:04)
[2020-02-07] MEDS: DOCUSATE SODIUM 100 MG/10 ML LIQUID UDC GT SCH (08:22)
[2020-02-07] MEDS: ASCORBIC ACID 500 MG TABLET GT SCH (08:23)
[2020-02-07] MEDS: FAMOTIDINE 20 MG TABLET PO SCH ×2 (08:23→17:08)
[2020-02-07] MEDS: METOPROLOL TARTRATE 50 MG TABLET GT SCH ×2 (08:24→20:04)
[2020-02-07] MEDS: DIGOXIN 125 MCG TABLET GT SCH (08:24)
[2020-02-07] MEDS: LISINOPRIL 20 MG TABLET GT SCH (08:25)
[2020-02-07] MEDS: WARFARIN SODIUM 7.5 MG TABLET GT SCH (08:44)
[2020-02-07] MEDS: Z GUARD REMEDY PASTE 57 GM TUBE TOP SCH ×2 (08:55→20:05)
[2020-02-07] MEDS: GLUCERNA 1.2 1000ML LIQUID GT PRN (10:00)
--- NOTE | 2020-02-07 10:00 | NUR ---
GT FEEDINGS RESTARTED ORDERED FLUSHED PER PROTOCOL TOLERATING FEEDING WELL WILL CONTINUE TO OBSERVE
[2020-02-07] MEDS: ENOXAPARIN SODIUM 80 MG/0.8 ML DISP.SYRIN SQ SCH ×2 (10:59→20:05)
--- NOTE | 2020-02-07 11:02 | NUR ---
PATIENT SEEN AND EXAMINED BY DR ROSE CARDIOOLOGY WITH NEW ORDERS DISCONTINUED TELEMETRY AND NOTED
[2020-02-07] MEDS: FUROSEMIDE 20 MG TABLET PO SCH (11:17)
--- NOTE | 2020-02-07 11:30 | NUR ---
DR MORGAN DPM HERE TO SEE PATIENT WITH NEW ORDERS AND NOTED.
[2020-02-07 11:45] VITALS: BP 123/40
[2020-02-07 15:31] VITALS: BP 103/35
--- NOTE | 2020-02-07 17:44 | NUR ---
CONTINUE TO TOLERATE HER GT FEEDINGS ORDERED WITH NO GASTRIC RESIDUAL AT THIS TIME REMAIN ON O2 AT 3L/M WITH ADEQUATE SATS ALL NEEDS ANTICIPATED AND SATISFIED TURNED REPOSITIONED AND HEELS FLOATED NOT IN DISTRESS AT THIS TIME.
--- NOTE | 2020-02-07 19:20 | NUR ---
Received patient lying in bed. Awake, but non-verbal, able to make brief eye contact when spoken to. In no acute distress. On o2 at 3LPM via NC in place. O2 sat at 100%. Midline on right upper arm intact and patent. GT site intact and patent. GT feeding ongoing. HOB kept elevated. Marcano catheter intact and draining via gravity. Seizure, droplet and contact precaution observed. Safety measure initiated and call carrillo within reached.
[2020-02-07 19:39] VITALS: BP 134/62
[2020-02-07] MEDS: ATORVASTATIN 10 MG TABLET GT SCH (20:04)
--- NOTE | 2020-02-07 22:05 | NUR ---
Lab/[facility] called and reported Covid test result is negative.
[2020-02-08] MEDS: CEFTRIAXONE 1 G in IV DEXTROSE 5% 50 ML IV SCH (01:24)
[2020-02-08] MEDS: AZITHROMYCIN IV 500 MG in IV DEXTROSE 5% 250 ML IV SCH (03:14)
[2020-02-08] MEDS: ACETAMINOPHEN 650 MG/20.3 ML LIQUID UDC GT PRN (03:56)
[2020-02-08] MEDS: GLUCERNA 1.2 1000ML LIQUID GT PRN (03:56)
[2020-02-08 04:35] VITALS: BP 126/65
--- NOTE | 2020-02-08 06:09 | NUR ---
Awake, but non-verbal, able to make brief eye contact and moaning sounds. Tylenol 650mg via GT given for signs of pain and effective. In no acute distress. O2 at 3LPM via NC in place. O2 sat at 100%. Midline on right upper arm and right hand intact and patent. GT site dry and clean. GT feeding and flushing well tolerated. No adverse reaction noted from IV ABX. HOB kept elevated. Marcano catheter intact and draining via gravity. Seizure, droplet and contact precaution maintained. Safety measure maintained and call carrillo within reached.
[2020-02-08 06:20] LABS: BASOPHILS % (AUTO) 1.3 % (0.0-2.0); EOSINOPHILS # (AUTO) 0.1 K/uL (0.0-0.7); EOSINOPHILS % (AUTO) 3.4 % (0.0-7.0); HEMATOCRIT 25.5 % (31.2-41.9); HEMOGLOBIN 8.4 g/dL (10.9-14.3); LYMPHOCYTES # (AUTO) 1.1 K/uL (20.0-40.0); LYMPHOCYTES % (AUTO) 27.5 % (20.5-51.5); MEAN CORPUSCULAR HEMOGLOBIN 31.7 uug (24.7-32.8); MEAN CORPUSCULAR HGB CONC 33 g/dL (32.3-35.6); MEAN CORPUSCULAR VOLUME 96.5 fL (75.5-95.3); MONOCYTES # (AUTO) 0.3 K/uL (2.0-10.0); NEUTROPHILS # (AUTO) 2.3 K/uL (1.8-8.9); NEUTROPHILS % (AUTO) 59.8 % (38.5-71.5); PLATELET COUNT (AUTO) 187 K/uL (179-408); RED BLOOD CELL COUNT(AUTO) 2.64 MIL/uL (3.63-4.92); WHITE BLOOD COUNT (AUTO) 3.9 K/uL (3.8-11.8)
[2020-02-08 06:31] LABS: CREATININE 0.7 mg/dL (0.6-1.3); MAGNESIUM 1.9 mg/dL (1.8-2.4); POTASSIUM 4.5 mmol/L (3.5-5.1)
--- NOTE | 2020-02-08 07:35 | NUR ---
RECEIVED PATIENT IN BED AWAKE EYES OPEN APHASIC ALL NEEDS ANTICIPATED AND SATISFIED GT FEEDING IS OFF AT THIS TIME WILL RECONNECT AT 1000 ORDERED.HOB UP TURNED AND REPOSITIONED Q2H HEELS FLOATED DAMON CATH IS INTACT PATIENT IS ON O2 WITH NO SOB AT THIS TIME PATIENT MADE COMFORTABLE WILL CONTINUE TO OBSERVE.
[2020-02-08] MEDS: Z GUARD REMEDY PASTE 57 GM TUBE TOP SCH ×2 (08:15→20:27)
[2020-02-08] MEDS: ZINC SULFATE 220 MG CAPSULE GT SCH (08:15)
[2020-02-08] MEDS: VALPROIC ACID 250 MG/5 ML LIQUID UDC GT SCH ×2 (08:16→16:26)
[2020-02-08] MEDS: DOCUSATE SODIUM 100 MG/10 ML LIQUID UDC GT SCH (08:16)
[2020-02-08] MEDS: levETIRAcetam 500 MG/5 ML LIQUID UDC GT SCH ×2 (08:16→20:26)
[2020-02-08] MEDS: ASCORBIC ACID 500 MG TABLET GT SCH (08:16)
[2020-02-08] MEDS: FERROUS SULFATE 300 MG/5 ML LIQUID UDC GT SCH (08:16)
[2020-02-08] MEDS: FAMOTIDINE 20 MG TABLET PO SCH ×2 (08:17→16:26)
[2020-02-08] MEDS: FUROSEMIDE 20 MG TABLET PO SCH (08:17)
[2020-02-08] MEDS: LISINOPRIL 20 MG TABLET GT SCH (08:18)
[2020-02-08] MEDS: METOPROLOL TARTRATE 50 MG TABLET GT SCH ×2 (08:18→20:27)
[2020-02-08] MEDS: DIGOXIN 125 MCG TABLET GT SCH (08:18)
[2020-02-08] MEDS: WARFARIN SODIUM 7.5 MG TABLET GT SCH (08:22)
[2020-02-08] MEDS: ENOXAPARIN SODIUM 80 MG/0.8 ML DISP.SYRIN SQ SCH ×2 (08:22→20:29)
--- NOTE | 2020-02-08 09:00 | NUR ---
PATIENT SEEN AND EXAMINED BY DR MARTINEZ WITH NO NEW ORDERS AT THIS TIME
--- NOTE | 2020-02-08 10:30 | NUR ---
PATIENT MOVED TO ROOM 312 SINCE SHE IS COVID NEGATIVE BUT PER THE EXPLOSIVE ORDNANCE DISPOSAL TECHNICIAN THE SNF [id number] A SECOND NEGATIVE TEST BEFORE SHE CAN GO BACK TO THE SNF WILL RE SWAB.
[2020-02-08 11:50] VITALS: BP 138/45
--- NOTE | 2020-02-08 13:33 | NUR ---
CALL RECEIVED FROM PATIENTS DAUGHTER RODRI STATED THAT PATIENT WAS ON ATIVAN NEEDED AND LEXAPRO SO I CHECKED HER HOME MED LIST SHE WAS ON ATIVAN BUT WAS PLACED ON HOLD ON ADMISSION AND DID NOT SEE ANY RECORD FOR LEXAPRO CALLED AND NOTIFIED DR GOLDSMITH WITH NO NEW ORDERS AT THIS TIME.
[2020-02-08] MEDS ORDERED: LORAZEPAM 0.5 MG TABLET PO PRN (15:15)
[2020-02-08 15:47] VITALS: BP 112/43
--- NOTE | 2020-02-08 16:15 | NUR ---
PATIENT REASSIGNMENT REPORT GIVEN TO ANOTHER RN FOR CONTINUING CARE AT THIS TIME SHE IS ON O2 WITH NO RESPIRATORY DISTRESS ZAMORA VIRUS TEST WAS DONE ORDERED AND SENT TO THE LAB ABOUT 2PM
--- NOTE | 2020-02-08 16:17 | NUR ---
Received patient in bed, awake, non-verbal with brief eye contact, not in any form of distress, on oxygen at 3LPM via NC. Noted with midline on the right upper arm and another IV line on the right hand, both intact and patent with no signs of infection. G-tube in place, clean and dry, with GT feeding of Glucerna 1.2 running at 60ml/hr. Head of bed kept elevated. Marcano catheter in place and patent draining clear yellow urine. Call light placed within patient's reach. Safety measures maintained.
[2020-02-08] MEDS: ESCITALOPRAM OXALATE 10 MG TABLET PO SCH (16:26)
[2020-02-08 20:00] VITALS: BP 102/67
[2020-02-08] MEDS: ATORVASTATIN 10 MG TABLET GT SCH (20:26)
--- NOTE | 2020-02-08 23:30 | NUR ---
pt repositioned; oral care done; needs attended; family had facetime session with patient
[2020-02-09] MEDS: CEFTRIAXONE 1 G in IV DEXTROSE 5% 50 ML IV SCH (00:25)
[2020-02-09] MEDS: AZITHROMYCIN IV 500 MG in IV DEXTROSE 5% 250 ML IV SCH (02:02)
--- NOTE | 2020-02-09 03:00 | NUR ---
Pt repositioned q2h; needs attended; aspiration precaution observed; IV to right hand discontinued; oral care done.
[2020-02-09 06:16] LABS: BASOPHILS % (AUTO) 0.9 % (0.0-2.0); EOSINOPHILS # (AUTO) 0.1 K/uL (0.0-0.7); HEMATOCRIT 27.2 % (31.2-41.9); HEMOGLOBIN 8.8 g/dL (10.9-14.3); LYMPHOCYTES # (AUTO) 1.3 K/uL (20.0-40.0); LYMPHOCYTES % (AUTO) 30.2 % (20.5-51.5); MEAN CORPUSCULAR HEMOGLOBIN 31.3 uug (24.7-32.8); MEAN CORPUSCULAR HGB CONC 32 g/dL (32.3-35.6); MONOCYTES # (AUTO) 0.3 K/uL (2.0-10.0); MONOCYTES % (AUTO) 7.8 % (0.0-11.0); NEUTROPHILS # (AUTO) 2.4 K/uL (1.8-8.9); NEUTROPHILS % (AUTO) 58.1 % (38.5-71.5); PLATELET COUNT (AUTO) 193 K/uL (179-408); WHITE BLOOD COUNT (AUTO) 4.2 K/uL (3.8-11.8)
[2020-02-09 06:39] LABS: CREATININE 0.7 mg/dL (0.6-1.3); POTASSIUM 4.5 mmol/L (3.5-5.1)
--- NOTE | 2020-02-09 06:39 | NUR ---
Pt slept well in between care; tolerated GTF; pt observed to have bleeding orally ie gums; saw one loose tooth as well; oral care done and close monitoring observed;
[2020-02-09 08:58] VITALS: BP 134/48
[2020-02-09] MEDS: ENOXAPARIN SODIUM 80 MG/0.8 ML DISP.SYRIN SQ SCH (09:00)
[2020-02-09] MEDS: DOCUSATE SODIUM 100 MG/10 ML LIQUID UDC GT SCH (09:37)
[2020-02-09] MEDS: VALPROIC ACID 250 MG/5 ML LIQUID UDC GT SCH ×2 (09:39→16:32)
[2020-02-09] MEDS: FERROUS SULFATE 300 MG/5 ML LIQUID UDC GT SCH (09:39)
[2020-02-09] MEDS: levETIRAcetam 500 MG/5 ML LIQUID UDC GT SCH (09:39)
[2020-02-09] MEDS: ASCORBIC ACID 500 MG TABLET GT SCH (09:42)
[2020-02-09] MEDS: ZINC SULFATE 220 MG CAPSULE GT SCH (09:42)
[2020-02-09] MEDS: FAMOTIDINE 20 MG TABLET PO SCH ×2 (09:42→16:32)
[2020-02-09] MEDS: DIGOXIN 125 MCG TABLET GT SCH (09:42)
[2020-02-09] MEDS: ESCITALOPRAM OXALATE 10 MG TABLET PO SCH (09:44)
[2020-02-09] MEDS: Z GUARD REMEDY PASTE 57 GM TUBE TOP SCH (09:45)
[2020-02-09] MEDS: METOPROLOL TARTRATE 50 MG TABLET GT SCH (10:09)
[2020-02-09] MEDS: FUROSEMIDE 20 MG TABLET PO SCH (10:09)
[2020-02-09] MEDS: WARFARIN SODIUM 7.5 MG TABLET GT SCH (10:20)
--- NOTE | 2020-02-09 11:00 | NUR ---
decreased O2 from 3L to 2L, will check and monitor
[2020-02-09 11:56] VITALS: BP 127/56
[2020-02-09] MEDS: LISINOPRIL 20 MG TABLET GT SCH (13:33)
--- NOTE | 2020-02-09 16:02 | NUR ---
gave report to Sydney Cowart in [facility]. Endorsement given. Pick-up time 1800
[2020-02-09 16:09] VITALS: BP 136/58
--- NOTE | 2020-02-09 19:26 | NUR ---
Pt picked up by ambulance, report given to Maldonado. On O2 @ 2L with no SOB or distress noted. Removed GAMALIEL midline and ID band. Gtube in place, flushed and patent. Marcano catheter still in place draining clear yellow urine. Changed wound dressing on left foot, pictures taken earlier. DC papers and forms given to ambulance personnel.
[2020-02-10] MEDS ORDERED: ERGOCALCIFEROL 50,000 UNIT CAPSULE GT SCH
== END 2020-02-09 19:30 | DRG 133 ==
LOC: ER 00:02 → CCU 08:00 → TELE3 21:19 → MEDSURG3 02-07 11:00
PROC: 05H533Z Insertion of Infusion Device into Right Subclavian Vein, Percutaneous Approach (ICD-10-PCS; 2020-02-06)
PROC: B546ZZA Ultrasonography of Right Subclavian Vein, Guidance (ICD-10-PCS; 2020-02-06)
PROC: 0HBRXZZ Excision of Toe Nail, External Approach (ICD-10-PCS; principal; 2020-02-07)
DX: J96.21 Acute and chronic respiratory failure with hypoxia (principal); J18.9 Pneumonia, unspecified organism; E11.42 Type 2 diabetes mellitus with diabetic polyneuropathy; E11.621 Type 2 diabetes mellitus with foot ulcer; L97.528 Non-pressure chronic ulcer of other part of left foot with other specified severity; B35.1 Tinea unguium; Z95.2 Presence of prosthetic heart valve; Z95.0 Presence of cardiac pacemaker; I69.354 Hemiplegia and hemiparesis following cerebral infarction affecting left non-dominant side; I11.0 Hypertensive heart disease with heart failure; I50.33 Acute on chronic diastolic (congestive) heart failure; D64.9 Anemia, unspecified; F03.90 Unspecified dementia, unspecified severity, without behavioral disturbance, psychotic disturbance, mood disturbance, and anxiety; F41.9 Anxiety disorder, unspecified; I25.10 Atherosclerotic heart disease of native coronary artery without angina pectoris; I48.20 Chronic atrial fibrillation, unspecified; R13.10 Dysphagia, unspecified; Z74.01 Bed confinement status; Z79.4 Long term (current) use of insulin; Z93.1 Gastrostomy status; E46 Unspecified protein-calorie malnutrition; E88.09 Other disorders of plasma-protein metabolism, not elsewhere classified; Z79.01 Long term (current) use of anticoagulants; G40.909 Epilepsy, unspecified, not intractable, without status epilepticus; G93.49 Other encephalopathy; Z99.81 Dependence on supplemental oxygen; Z68.27 Body mass index [BMI] 27.0-27.9, adult; Z88.6 Allergy status to analgesic agent; E11.51 Type 2 diabetes mellitus with diabetic peripheral angiopathy without gangrene; M24.542 Contracture, left hand; M24.541 Contracture, right hand; M24.562 Contracture, left knee; M24.561 Contracture, right knee; B37.49 Other urogenital candidiasis
CPT/HCPCS: 36415; 36600; 51702; 70030-TC; 71045; 83605; 83615; 83735; 84100; 85025; 85610; 85730; 86140; 87040; 87070; 87077; 87086; 87400; 93005; 93307; A4663; G0378; J0456; J0696; J1650; J1940; J3535; J7060; U0003-CS

== ENCOUNTER 2022-05-28 01:38 | Inpatient (IN) | payer OTHER, MEDICARE ==
[~2022-05-28] VITALS: Ht 162.6 cm; Wt 68.0 kg
[~2022-05-28 01:38] MED LIST changes: +ACET-2154 GT; -ACET325T53 GT; -ACET325T53 PO; +ALBU2.5V38 NEB; -BISA10SU95 RC; -BLOO-140 IN; +CEFT1VIA15 IV; -CEPH-570 GT; +DILT30TA2 GT; +ENOX80DI SQ; +FAMO-132 PO; +FERR220S14 GT; +FURO-151 GT; -GUAI200T5 GT; +IPRA0.2S6 NEB; -LACT1TAB20 GT; -LEVA0.6320 IH; -LISI10TA5 GT; +MAGN400C GT; +MULT-594 GT; -PROT946L GT; +SENN-261 GT; +WARF1TAB2 GT; -WARF4TAB41 GT
[2022-05-28] MEDS ORDERED: IV NORMAL SALINE 1000 ML BAG IV ONE (02:00)
--- NOTE | 2022-05-28 02:00 | NUR ---
Daughter at bedside.
[2022-05-28 02:19] LABS: HEMATOCRIT 32.3 % (31.2-41.9); MEAN CORPUSCULAR HEMOGLOBIN 30.5 uug (24.7-32.8); PLATELET COUNT (AUTO) 133 K/uL (179-408)
[2022-05-28 02:29] LABS: CARBON DIOXIDE 33 mmol/L (21-32); CHLORIDE 102 mmol/L (98-107); CREATININE 0.6 mg/dL (0.6-1.3); GLUCOSE 103 mg/dL (74-106); POTASSIUM 3.9 mmol/L (3.5-5.1); UREA NITROGEN, BLOOD 13 mg/dL (7-18)
[2022-05-28 02:37] LABS: ALANINE AMINOTRANSFERASE 35 U/L (14-59); ALKALINE PHOSPHATASE 72 U/L (50-136); ASPARTATE AMINOTRANSFERASE 36 U/L (15-37); BILIRUBIN,DIRECT 0.1 mg/dL (0.0-0.2); BILIRUBIN,TOTAL 0.6 mg/dL (0.2-1.0)
[2022-05-28] MEDS ORDERED: levoFLOXacin 750 MG/D5W 150 ML PIGGYBACK IV ONE (03:15)
[2022-05-28] MEDS ORDERED: IV NORMAL SALINE 500 ML IV ONE (03:15)
--- NOTE | 2022-05-28 04:00 | NUR ---
Brandy cleaning performed.
[2022-05-28] MEDS ORDERED: ALPRAZOLAM 0.25 MG TABLET GT ONE (04:15)
[2022-05-28] MEDS ORDERED: ALPRAZOLAM 0.5 MG TABLET ONE (04:19)
--- NOTE | 2022-05-28 05:57 | NUR ---
Contacted [facility] for panel call. Dr. Hutton premix operator concentrate.
[2022-05-28] MEDS ORDERED: ATOR40TA PO (05:58)
[2022-05-28] MEDS ORDERED: FUROSEMIDE 40 MG/4 ML VIAL ONE (06:07)
[2022-05-28] MEDS ORDERED: FUROSEMIDE 40 MG/4 ML VIAL IV ONE (06:15)
[2022-05-28] MEDS ORDERED: MAGNESIUM HYDROXIDE 30 ML LIQUID UDC PO PRN (06:45)
[2022-05-28] MEDS ORDERED: REMEDY ESSENTIAL ZINC PASTE 113 GM TP PRN (06:45)
[2022-05-28] MEDS ORDERED: ONDANSETRON 4 MG/2 ML VIAL IV PRN (06:45)
--- NOTE | 2022-05-28 06:50 | NUR ---
Brandy cleaning performed. Large BM.
--- NOTE | 2022-05-28 06:59 | NUR ---
Anusha DENG called back. Patient will be transfered to TELE room 309
--- NOTE | 2022-05-28 07:17 | NUR ---
Report given to SOWMYA Haji.
--- NOTE | 2022-05-28 09:50 | NUR ---
ADMITTED FROM [facility] VIA ER ACCOMPANIED BY DAUGHTER WITH ADMITTING DX OF PNEUMONIA ALERT BUT NON-VEERBAL. ON 3L NC . ROUTINE ASSESSMENT INITIATED, AFIB ON MONITOR
[2022-05-28 10:20] VITALS: BP 113/29
[2022-05-28] MEDS: PANTOPRAZOLE SODIUM 40 MG VIAL IV SCH (10:35)
[2022-05-28] MEDS: ACETAMINOPHEN 325 MG TABLET PO PRN ×2 (10:35→20:07)
[2022-05-28] MEDS ORDERED: ACETAMINOPHEN 325 MG TABLET-SA PATIENTS-PAIN ONLY GT PRN (11:00)
[2022-05-28] MEDS ORDERED: DILTIAZEM HCL 30 MG TABLET GT SCH (11:00)
[2022-05-28] MEDS ORDERED: ALBUTEROL SULFATE 2.5 MG/3 ML NEBU NEB PRN (11:00)
[2022-05-28] MEDS ORDERED: IPRATROPIUM BROMIDE 0.5 MG/2.5 ML NEBU NEB PRN (11:00)
[2022-05-28] MEDS: levETIRAcetam 500 MG/5 ML LIQUID UDC GT SCH ×2 (12:25→20:06)
[2022-05-28] MEDS: DIGOXIN 125 MCG TABLET GT SCH (12:26)
[2022-05-28] MEDS: METOPROLOL TARTRATE 50 MG TABLET GT SCH ×2 (12:26→20:08)
[2022-05-28] MEDS ORDERED: HOME MED MISCELLANEOUS XX SCH (12:45)
[2022-05-28] MEDS ORDERED: VALPROIC ACID 250 MG/5 ML LIQUID UDC GT SCH (13:00)
[2022-05-28] MEDS ORDERED: CHOL100062 GT (13:03)
[2022-05-28] MEDS ORDERED: OMEP40CA21 GT (13:03)
[2022-05-28] MEDS ORDERED: METO50TA16 GT (13:03)
[2022-05-28] MEDS ORDERED: CRAN450T9 GT (13:03)
[2022-05-28] MEDS ORDERED: FURO20TA4 GT (13:03)
[2022-05-28] MEDS ORDERED: NA P133E RC ×2 (13:03)
[2022-05-28] MEDS ORDERED: IPRA3AMP23 NEB (13:03)
[2022-05-28] MEDS ORDERED: LACT1CAP72 GT (13:03)
[2022-05-28] MEDS ORDERED: DILT30TA35 GT (13:03)
[2022-05-28] MEDS ORDERED: OLAN5TAB70 GT (13:03)
[2022-05-28] MEDS ORDERED: DIVA125C2 GT (13:03)
[2022-05-28] MEDS ORDERED: ESCI20TA44 GT (13:03)
[2022-05-28] MEDS ORDERED: GUAI100S9 GT (13:03)
[2022-05-28] MEDS ORDERED: WARF10TA45 GT (13:12)
--- NOTE | 2022-05-28 13:29 | NUR ---
WOUND CARE CONSULT: PT PRESENTS WITH UPPER AND LOWER EXTREMITY CONTRACTURES, LEFT FOOT AND HEEL SCARRING, SACRAL SCARRING AND RASHES/REDNESS TO RT MEDIAL ARM AND BILATERAL BREASTFOLDS, ALL PRESENT ON ADMISSION. RECOMMENDATIONS MADE FOR SKIN PROTECTION. DISCUSSED WITH NURSING STAFF. FIRST STEP MATTRESS IS ON ORDER. MD IN AGREEMENT WITH PLAN OF CARE. Addendum: 05/28/22 at 1331 by OSMEL VAN RN Amended: Links added.
[2022-05-28] MEDS ORDERED: GLUCERNA 1.2 1000ML LIQUID GT PRN (13:45)
[2022-05-28] MEDS: DILTIAZEM HCL 30 MG TABLET GT SCH ×3 (14:00→23:15)
[2022-05-28] MEDS ORDERED: METRONIDAZOLE 500 MG/NS 100ML 500 MG in PREMIXED 1 EACH IV SCH (14:00)
[2022-05-28] MEDS: PIPERACILLIN SODIUM/TAZOBACTAM 3.375 G in IV DEXTROSE 5% 50 ML IV SCH ×2 (14:01→20:11)
[2022-05-28] MEDS: DIVALPROEX SPRINKLE 125 MG CAP.SPRINK GT SCH ×2 (14:57→20:42)
[2022-05-28] MEDS ORDERED: VANCOMYCIN IV 1,250 MG in IV DEXTROSE 5% 250 ML IV ONE (15:00)
[2022-05-28] MEDS: IPRATROPIUM BROMIDE 0.5 MG/2.5 ML NEBU NEB SCH ×2 (15:24→19:34)
[2022-05-28] MEDS: GLUCERNA 1.2 1000ML LIQUID GT PRN (15:40)
[2022-05-28 16:00] VITALS: BP 91/33
--- NOTE | 2022-05-28 16:00 | NUR ---
GLUCERNA TF STARTED AT 10 MLS/HR VIA GT
[2022-05-28 16:34] LABS: *BILIRUBIN,URIN NEGATIVE (NEGATIVE); *BLOOD, URINE NEGATIVE (NEGATIVE); *CLARITY,URINE CLEAR (CLEAR); *COLOR,URINE YELLOW (YELLOW); *KETONES,URINE NEGATIVE (NEGATIVE); LEUKOCYTE ESTERASE ,URINE NEGATIVE (NEGATIVE); NITRITE, URINE NEGATIVE (NEGATIVE); PH,URINE 7.5 (5.0-8.0); UGLUCOSE NEGATIVE (NEGATIVE)
[2022-05-28] MEDS ORDERED: FAMOTIDINE 20 MG TABLET PO SCH (17:00)
[2022-05-28] MEDS: DOCUSATE SODIUM 100 MG/10 ML LIQUID UDC GT SCH (17:00)
[2022-05-28] MEDS: CLOTRIMAZOLE 1% CREAM 30 GM TUBE TOP SCH (17:08)
[2022-05-28] MEDS: OLANZAPINE 5 MG TABLET GT SCH (17:09)
[2022-05-28 17:24] LABS: RBC,URINE 0-3 /HPF (0-3); SQUAMOUS EPITHELIAL CELL,UR FEW /HPF (NONE SEEN); WBC,URINE 0-3 /HPF (0-3)
[2022-05-28 17:25] LABS: BACTERIA,URINE MODERATE /HPF (NONE SEEN)
--- NOTE | 2022-05-28 18:15 | NUR ---
LATEST TEMP 98.7, NO SS OF PAIN OR DISTRESS
[2022-05-28 20:00] VITALS: BP 102/39
[2022-05-28] MEDS: CULTURELLE CAPSULE GT SCH (20:06)
[2022-05-28] MEDS: ESCITALOPRAM OXALATE 10 MG TABLET GT SCH (20:06)
[2022-05-28] MEDS: ATORVASTATIN 40 MG TABLET GT SCH (20:06)
[2022-05-28] MEDS ORDERED: ENOXAPARIN SODIUM 80 MG/0.8 ML DISP.SYRIN SQ SCH (21:00)
[2022-05-28] MEDS: VANCOMYCIN IV 1,000 MG in IV DEXTROSE 5% 250 ML IV SCH (23:06)
[2022-05-29] VITALS: BP 94/30
[2022-05-29] MEDS: IPRATROPIUM BROMIDE 0.5 MG/2.5 ML NEBU NEB SCH ×4 (01:18→20:46)
[2022-05-29] MEDS: PIPERACILLIN SODIUM/TAZOBACTAM 3.375 G in IV DEXTROSE 5% 50 ML IV SCH ×4 (01:46→20:17)
[2022-05-29] MEDS: ACETAMINOPHEN 325 MG TABLET PO PRN ×3 (03:30→23:58)
[2022-05-29 04:00] VITALS: BP 96/30
[2022-05-29] MEDS ORDERED: levoFLOXacin 750MG/D5W 750 MG in PREMIXED 1 EACH IV SCH (04:00)
[2022-05-29] MEDS: DILTIAZEM HCL 30 MG TABLET GT SCH ×4 (05:25→23:59)
--- NOTE | 2022-05-29 05:36 | NUR ---
patient in bed ,HOB elevated for aspiration precautions. breathing even and unlabored. no sob noted. patient suctioned orally. v/s taken and noted with low grad fever. Tylenol prn given, cooling measures done and noted effective. repositioned q2hrs. patient noted on GTF. no residual noted. patient kept clean, dry and comfortable.
[2022-05-29] MEDS: VANCOMYCIN IV 1,000 MG in IV DEXTROSE 5% 250 ML IV SCH (06:00)
[2022-05-29 06:11] LABS: HEMATOCRIT 26.8 % (31.2-41.9); MEAN CORPUSCULAR HEMOGLOBIN 30.9 uug (24.7-32.8); MEAN CORPUSCULAR VOLUME 92.2 fL (75.5-95.3); PLATELET COUNT (AUTO) 117 K/uL (179-408)
[2022-05-29 06:35] LABS: CREATININE 0.8 mg/dL (0.6-1.3); MAGNESIUM 1.8 mg/dL (1.8-2.4); PHOSPHOROUS 3.1 mg/dL (2.5-4.9); POTASSIUM 3.3 mmol/L (3.5-5.1)
[2022-05-29 06:39] LABS: THYROID STIMULATING HORMONE 0.727 mIU/mL (0.358-3.740)
--- NOTE | 2022-05-29 08:00 | NUR ---
RESTING COMFORTABLY IN BED WITH O2 AT 3L NC SATURATING 97%. NO SS OF PAIN OR DISTRESS. CONTINUE TUBE FEEDING TOLERATED
[2022-05-29] MEDS: DOCUSATE SODIUM 100 MG/10 ML LIQUID UDC GT SCH ×2 (08:18→16:50)
[2022-05-29] MEDS: ASCORBIC ACID 500 MG TABLET GT SCH (08:18)
[2022-05-29] MEDS: DIVALPROEX SPRINKLE 125 MG CAP.SPRINK GT SCH ×2 (08:18→16:50)
[2022-05-29] MEDS: FERROUS SULFATE 300 MG/5 ML LIQUID UDC GT SCH (08:18)
[2022-05-29] MEDS: levETIRAcetam 500 MG/5 ML LIQUID UDC GT SCH ×2 (08:18→20:17)
[2022-05-29] MEDS: OLANZAPINE 5 MG TABLET GT SCH ×2 (08:18→16:49)
[2022-05-29] MEDS: PANTOPRAZOLE SODIUM 40 MG VIAL IV SCH (08:18)
[2022-05-29] MEDS: CHOLECALCIFEROL 1,000 UNIT TABLET GT SCH (08:19)
[2022-05-29] MEDS: CULTURELLE CAPSULE GT SCH ×2 (08:19→20:17)
[2022-05-29] MEDS: SENNOSIDES 1 TABLET GT SCH (08:20)
[2022-05-29] MEDS: MULTIVITAMINS,THERAPEUTIC TABLET GT SCH (08:20)
[2022-05-29] MEDS: CLOTRIMAZOLE 1% CREAM 30 GM TUBE TOP SCH ×2 (08:32→16:50)
[2022-05-29] MEDS: DIGOXIN 125 MCG TABLET GT SCH (08:32)
[2022-05-29] MEDS ORDERED: POTASSIUM CHLORIDE 20 MEQ POWDER PACKET GT ONE (08:45)
[2022-05-29] MEDS ORDERED: ZINC SULFATE 220 MG CAPSULE GT SCH (09:00)
[2022-05-29] MEDS ORDERED: MULTIVITAMINS 5 ML LIQUID UDC GT SCH (09:00)
[2022-05-29] MEDS: METOPROLOL TARTRATE 50 MG TABLET GT SCH ×2 (09:00→20:19)
[2022-05-29] MEDS: IV NS 1000 ML 1,000 ML IV PRN (11:37)
[2022-05-29 12:00] VITALS: BP 96/47
--- NOTE | 2022-05-29 12:00 | NUR ---
NO ACUTE CHANGE FROM MORNING ASSESSMENT TOLERATING FEEDING AT 40 MLS/HR FIB FLUTTER ON MONITOR
[2022-05-29 16:03] VITALS: BP 106/28
[2022-05-29] MEDS: IPRATROPIUM BROMIDE 0.5 MG/2.5 ML NEBU NEB PRN (17:10)
[2022-05-29] MEDS: ALBUTEROL SULFATE 2.5 MG/3 ML NEBU NEB PRN (17:10)
--- NOTE | 2022-05-29 17:15 | NUR ---
PATIENT REQUIRES ON AND OFF ORAL SUCTIONING FOR MODERATE AMOUNT OF THICK SECRETIONS, GOOD ORAL CARE DONE. O2 AT 2-3 L SATURATING 97%. CONTINUE TELE MONITORING FIB FLUTTER VARIABLE 2-3. LATEST TEMP 98.7 ORALLY
--- NOTE | 2022-05-29 19:30 | NUR ---
Received patient laying iin bed. Daughter at bedside. Awake but none verbal, only moans and groans. No acute distress. On 3L/min NC, O2 saturation 100%. Afib controlled with a Heart rate of 95/min. Midline on right upper arm intact and patent. IV fluid infusing. GT Feeding infusing. HOB kept elevated. Latest temperature at 99.0 orally, continue with cooling measure. Safety measure initiated and call light within reach.
[2022-05-29 20:00] VITALS: BP 113/64
[2022-05-29] MEDS: ALPRAZOLAM 0.25 MG TABLET GT PRN (20:17)
[2022-05-29] MEDS: ATORVASTATIN 40 MG TABLET GT SCH (20:17)
[2022-05-29] MEDS: ESCITALOPRAM OXALATE 10 MG TABLET GT SCH (20:17)
[2022-05-30] VITALS: BP 102/57
[2022-05-30] MEDS: VANCOMYCIN IV 1,000 MG in IV DEXTROSE 5% 250 ML IV SCH ×2 (00:02→12:22)
[2022-05-30] MEDS: IPRATROPIUM BROMIDE 0.5 MG/2.5 ML NEBU NEB SCH ×4 (01:40→21:00)
[2022-05-30] MEDS: PIPERACILLIN SODIUM/TAZOBACTAM 3.375 G in IV DEXTROSE 5% 50 ML IV SCH ×4 (02:17→20:19)
[2022-05-30 04:00] VITALS: BP 100/49
[2022-05-30] MEDS: IPRATROPIUM BROMIDE 0.5 MG/2.5 ML NEBU NEB PRN (04:14)
[2022-05-30] MEDS: ALBUTEROL SULFATE 2.5 MG/3 ML NEBU NEB PRN (04:15)
[2022-05-30] MEDS: ALPRAZOLAM 0.25 MG TABLET GT PRN ×2 (04:17→20:19)
[2022-05-30] MEDS: PANTOPRAZOLE ORAL SUSPENSION 40 MG SUSPDR.PKT GT SCH (05:55)
[2022-05-30] MEDS: DILTIAZEM HCL 30 MG TABLET GT SCH ×3 (05:55→17:57)
[2022-05-30] MEDS: ACETAMINOPHEN 325 MG TABLET PO PRN ×4 (06:03→22:37)
[2022-05-30 06:20] LABS: HEMATOCRIT 25.6 % (31.2-41.9); MEAN CORPUSCULAR HEMOGLOBIN 30.5 uug (24.7-32.8); PLATELET COUNT (AUTO) 107 K/uL (179-408)
--- NOTE | 2022-05-30 06:27 | NUR ---
Patient continue to have frequent cough moist cough. Informed Dr. Barboza and ordered Mucinex 600mg via GT BID. Order noted and will carry out.
--- NOTE | 2022-05-30 06:30 | NUR ---
Patient alert, but non-verbal,able to make brief eye contact when spoken to. In no apparent distress. Suction secretions PRN and able to obtain mod amount of clear secretions. GT feeding and flushing well tolerated. No adverse reaction noted from IV antibiotic. IVF continue to infused. A fib on tele with Hr of 93/min. Needs assessed and anticipated to. Safety measure maintained and call light within reached.
[2022-05-30 07:29] LABS: CREATININE 0.9 mg/dL (0.6-1.3); MAGNESIUM 1.9 mg/dL (1.8-2.4); PHOSPHOROUS 3.1 mg/dL (2.5-4.9); POTASSIUM 3.4 mmol/L (3.5-5.1)
[2022-05-30] MEDS ORDERED: POTASSIUM CHLORIDE 20 MEQ POWDER PACKET GT ONE (08:00)
--- NOTE | 2022-05-30 08:00 | NUR ---
GT FEEDINGS RESTARTED WITH GLUCERNA 1.2 ORDERED AND SANDI WELL WITH NO GASTRIC RESIDUAL REMAIN ON O2 AT 2L/M BY NASAL CANULA WITH NO SHORTNESS OF BREATH HHN TREATMENT ORDERED AND HELPFUL ORAL SUCTIONING FOR SECRETIONS REPOSITIONED FOR COMFORT MAX ASSIST FOR ALL ADL WILL CONTINUE TO OBSERVE.
[2022-05-30] MEDS: GUAIFENESIN LA 600 MG TABLET.SA PO SCH ×2 (09:00→20:21)
[2022-05-30] MEDS: DOCUSATE SODIUM 100 MG/10 ML LIQUID UDC GT SCH ×2 (09:22→17:27)
[2022-05-30] MEDS: FERROUS SULFATE 300 MG/5 ML LIQUID UDC GT SCH (09:22)
[2022-05-30] MEDS: levETIRAcetam 500 MG/5 ML LIQUID UDC GT SCH ×2 (09:22→20:19)
[2022-05-30] MEDS: CULTURELLE CAPSULE GT SCH ×2 (09:22→20:20)
[2022-05-30] MEDS: SENNOSIDES 1 TABLET GT SCH (09:23)
[2022-05-30] MEDS: OLANZAPINE 5 MG TABLET GT SCH ×2 (09:24→17:28)
[2022-05-30] MEDS: CHOLECALCIFEROL 1,000 UNIT TABLET GT SCH (09:24)
[2022-05-30] MEDS: ASCORBIC ACID 500 MG TABLET GT SCH (09:24)
[2022-05-30] MEDS: MULTIVITAMINS,THERAPEUTIC TABLET GT SCH (09:24)
[2022-05-30] MEDS: DIVALPROEX SPRINKLE 125 MG CAP.SPRINK GT SCH ×2 (09:24→17:27)
[2022-05-30] MEDS: DIGOXIN 125 MCG TABLET GT SCH (09:25)
[2022-05-30] MEDS: METOPROLOL TARTRATE 50 MG TABLET GT SCH ×2 (09:25→20:21)
[2022-05-30] MEDS: CLOTRIMAZOLE 1% CREAM 30 GM TUBE TOP SCH ×2 (09:29→17:31)
[2022-05-30] MEDS: POTASSIUM CHLORIDE 50 ML IV SCH ×2 (09:29→10:34)
[2022-05-30 11:28] VITALS: BP 96/31
--- NOTE | 2022-05-30 13:30 | NUR ---
UNABLE TO GIVE MUCINEX PATIENT IS A GT FEEDER UNABLE TO CRUSH MUCINEX MD AWARE STATED TO DISCONTINUE WILL ORDER ALTERNATIVE.
[2022-05-30 15:14] VITALS: BP 95/49
--- NOTE | 2022-05-30 16:15 | NUR ---
NOTED PATIENT HAD A TEMP OF 100.7 TYLENOL GIVEN COOLING MEASURES MADE COMFORTABLE WILL CONTINUE TO OBSERVE.
[2022-05-30] MEDS: WARFARIN SODIUM 5 MG TABLET GT SCH (17:29)
[2022-05-30] MEDS: GLUCERNA 1.2 1000ML LIQUID GT PRN (18:00)
[2022-05-30] MEDS: IV NS 1000 ML 1,000 ML IV PRN (18:11)
--- NOTE | 2022-05-30 18:49 | NUR ---
TOLERATING FEEDINGS WITH NO RESIDUAL NOT IN DISTRESS AT THIS TIME
--- NOTE | 2022-05-30 19:30 | NUR ---
Received patient laying in bed. Awake but none verbal. In no acute distress. On 2L/min NC. Afib controlled on tele. Midline on right upper arm intact and patent. IV fluid infusing. GT Feeding infusing. HOB kept elevated. Afebrile at this time. Safety measure initiated and call light within reach.
[2022-05-30 20:00] VITALS: BP 108/39
[2022-05-30] MEDS: ATORVASTATIN 40 MG TABLET GT SCH (20:20)
[2022-05-30] MEDS: ESCITALOPRAM OXALATE 10 MG TABLET GT SCH (20:20)
[2022-05-31] VITALS: BP 123/41
[2022-05-31] MEDS: DILTIAZEM HCL 30 MG TABLET GT SCH ×4 (00:21→17:23)
[2022-05-31] MEDS: VANCOMYCIN IV 1,000 MG in IV DEXTROSE 5% 250 ML IV SCH (00:22)
[2022-05-31] MEDS: IPRATROPIUM BROMIDE 0.5 MG/2.5 ML NEBU NEB SCH ×4 (01:25→19:23)
[2022-05-31] MEDS: PIPERACILLIN SODIUM/TAZOBACTAM 3.375 G in IV DEXTROSE 5% 50 ML IV SCH ×4 (02:10→20:22)
[2022-05-31 04:00] VITALS: BP 150/60
[2022-05-31] MEDS: ACETAMINOPHEN 325 MG TABLET PO PRN (05:16)
[2022-05-31] MEDS: PANTOPRAZOLE ORAL SUSPENSION 40 MG SUSPDR.PKT GT SCH (05:16)
--- NOTE | 2022-05-31 05:50 | NUR ---
Suctioned secretions PRN and able to obtain moderate amount of whitish drainage. GT feeding and flushing well tolerated. Cooling measure continued. Tylenol 650mg via GT ever 6 hours PRN provided. A. fib with occasional V pacing on tele HR at 79/min at this time. HOB kept elevated. Safety measure maintained.
[2022-05-31 06:35] LABS: HEMATOCRIT 25.7 % (31.2-41.9); MEAN CORPUSCULAR HEMOGLOBIN 30.5 uug (24.7-32.8); MEAN CORPUSCULAR VOLUME 91.4 fL (75.5-95.3); PLATELET COUNT (AUTO) 106 K/uL (179-408)
[2022-05-31 06:51] LABS: CREATININE 0.8 mg/dL (0.6-1.3); MAGNESIUM 2.2 mg/dL (1.8-2.4); POTASSIUM 4.4 mmol/L (3.5-5.1)
[2022-05-31] MEDS: ALBUTEROL SULFATE 2.5 MG/3 ML NEBU NEB PRN ×2 (07:48→13:54)
[2022-05-31] MEDS: GUAIFENESIN LA 600 MG TABLET.SA PO SCH ×2 (09:00→20:24)
[2022-05-31] MEDS: SENNOSIDES 1 TABLET GT SCH (09:22)
[2022-05-31] MEDS: MULTIVITAMINS,THERAPEUTIC TABLET GT SCH (09:23)
[2022-05-31] MEDS: OLANZAPINE 5 MG TABLET GT SCH ×2 (09:23→17:23)
[2022-05-31] MEDS: DIVALPROEX SPRINKLE 125 MG CAP.SPRINK GT SCH ×2 (09:23→17:22)
[2022-05-31] MEDS: CHOLECALCIFEROL 1,000 UNIT TABLET GT SCH (09:23)
[2022-05-31] MEDS: ASCORBIC ACID 500 MG TABLET GT SCH (09:24)
[2022-05-31] MEDS: levETIRAcetam 500 MG/5 ML LIQUID UDC GT SCH ×2 (09:24→20:22)
[2022-05-31] MEDS: CULTURELLE CAPSULE GT SCH ×2 (09:24→20:22)
[2022-05-31] MEDS: DIGOXIN 125 MCG TABLET GT SCH (09:24)
[2022-05-31] MEDS: METOPROLOL TARTRATE 50 MG TABLET GT SCH ×2 (09:25→20:23)
[2022-05-31] MEDS: DOCUSATE SODIUM 100 MG/10 ML LIQUID UDC GT SCH ×2 (09:25→17:22)
[2022-05-31] MEDS: CLOTRIMAZOLE 1% CREAM 30 GM TUBE TOP SCH ×2 (09:26→18:16)
[2022-05-31] MEDS: FERROUS SULFATE 300 MG/5 ML LIQUID UDC GT SCH (09:44)
--- NOTE | 2022-05-31 11:04 | NUR ---
DR HUERTA HERE SEEN PATIENT WITH NEW ORDERS AND NOTED.
[2022-05-31 11:06] VITALS: BP 114/53
[2022-05-31] MEDS: FUROSEMIDE 20 MG TABLET PO SCH (11:39)
[2022-05-31 15:06] VITALS: BP 128/48
[2022-05-31] MEDS: ALPRAZOLAM 0.25 MG TABLET GT PRN (17:23)
[2022-05-31] MEDS: WARFARIN SODIUM 5 MG TABLET GT SCH (17:24)
--- NOTE | 2022-05-31 18:02 | NUR ---
CALL RECEIVED FROM [employer] FOR POSITIVE MRSA NARES CALLED TO DR SAEED GOLDSMITH WITH ORDERS.
--- NOTE | 2022-05-31 19:30 | NUR ---
Received patient lying in bed. Awake, but non-verbal, only moans and groans. Daughter at bedside. In no acute distress. No signs or symptoms of pain or SOB. On O2 at 2LPM via NC in place. O2 sat at 99%. Afebrile at this time. A fib on tele with HR of 100/min. Midline on right upper arm intact and patent. GT feeding infusing. Needs assessed and attended to. Safety measure initiated and call light within reached.
[2022-05-31 20:00] VITALS: BP 124/52
[2022-05-31] MEDS: ATORVASTATIN 40 MG TABLET GT SCH (20:22)
[2022-05-31] MEDS: ESCITALOPRAM OXALATE 10 MG TABLET GT SCH (20:22)
[2022-05-31] MEDS: MUPIROCIN 2% OINT 22 GM TUBE NS SCH (20:24)
[2022-06-01] VITALS: BP 143/52
[2022-06-01] MEDS: DILTIAZEM HCL 30 MG TABLET GT SCH ×4 (00:06→17:17)
[2022-06-01] MEDS: VANCOMYCIN IV 1,000 MG in IV DEXTROSE 5% 250 ML IV SCH ×2 (00:06→17:17)
[2022-06-01] MEDS: IPRATROPIUM BROMIDE 0.5 MG/2.5 ML NEBU NEB SCH ×4 (01:11→18:21)
[2022-06-01] MEDS: PIPERACILLIN SODIUM/TAZOBACTAM 3.375 G in IV DEXTROSE 5% 50 ML IV SCH ×4 (01:45→20:27)
[2022-06-01] MEDS: PANTOPRAZOLE ORAL SUSPENSION 40 MG SUSPDR.PKT GT SCH (05:18)
--- NOTE | 2022-06-01 06:07 | NUR ---
Slept well during the night. A. fib controlled on tele with HR of 83/min. No adverse reaction noted from IV antibiotic. Lesser secretion during the shift. GT feeding/flushing well tolerated. Safety measure maintained and call light within reached.
[2022-06-01 07:13] LABS: HEMATOCRIT 26.5 % (31.2-41.9); MEAN CORPUSCULAR HEMOGLOBIN 30.9 uug (24.7-32.8); MEAN CORPUSCULAR VOLUME 91.1 fL (75.5-95.3); PLATELET COUNT (AUTO) 107 K/uL (179-408)
[2022-06-01 07:27] LABS: CREATININE 0.7 mg/dL (0.6-1.3); MAGNESIUM 1.9 mg/dL (1.8-2.4); PHOSPHOROUS 3.3 mg/dL (2.5-4.9); POTASSIUM 3.9 mmol/L (3.5-5.1)
--- NOTE | 2022-06-01 08:00 | NUR ---
AWAKE ALERT BUT NON-VERBAL, O2 AT 2L NC SATURATING 96% REQUIRES OCCASIONAL SUCTIONING VIA NASAL TRUMPET WITH MODERATE AMOUNT OF THICK YELLOW SECRETION, ORAL CARE DONE SR ON MONITOR
[2022-06-01] MEDS: CHOLECALCIFEROL 1,000 UNIT TABLET GT SCH (08:25)
[2022-06-01] MEDS: FERROUS SULFATE 300 MG/5 ML LIQUID UDC GT SCH (08:26)
[2022-06-01] MEDS: DOCUSATE SODIUM 100 MG/10 ML LIQUID UDC GT SCH ×2 (08:26→17:12)
[2022-06-01] MEDS: levETIRAcetam 500 MG/5 ML LIQUID UDC GT SCH ×2 (08:26→20:28)
[2022-06-01] MEDS: DIGOXIN 125 MCG TABLET GT SCH (08:26)
[2022-06-01] MEDS: OLANZAPINE 5 MG TABLET GT SCH ×2 (08:27→17:12)
[2022-06-01] MEDS: FUROSEMIDE 20 MG TABLET PO SCH (08:27)
[2022-06-01] MEDS: SENNOSIDES 1 TABLET GT SCH (08:27)
[2022-06-01] MEDS: DIVALPROEX SPRINKLE 125 MG CAP.SPRINK GT SCH ×2 (08:27→17:14)
[2022-06-01] MEDS: GUAIFENESIN LA 600 MG TABLET.SA PO SCH ×2 (08:28→20:30)
[2022-06-01] MEDS: METOPROLOL TARTRATE 50 MG TABLET GT SCH ×2 (08:28→20:29)
[2022-06-01] MEDS: MULTIVITAMINS,THERAPEUTIC TABLET GT SCH (08:29)
[2022-06-01] MEDS: MUPIROCIN 2% OINT 22 GM TUBE NS SCH ×2 (08:29→20:29)
[2022-06-01] MEDS: CLOTRIMAZOLE 1% CREAM 30 GM TUBE TOP SCH ×2 (08:30→17:14)
[2022-06-01] MEDS: CULTURELLE CAPSULE GT SCH ×2 (08:33→20:27)
[2022-06-01] MEDS: ASCORBIC ACID 500 MG TABLET GT SCH (08:33)
[2022-06-01 11:57] VITALS: BP 125/52
--- NOTE | 2022-06-01 12:00 | NUR ---
NO ACUTE CHANGE FROM MORNING ASSESSMENT
[2022-06-01] MEDS: GLUCERNA 1.2 1000ML LIQUID GT PRN (12:14)
[2022-06-01 15:54] VITALS: BP 142/55
[2022-06-01] MEDS: WARFARIN SODIUM 5 MG TABLET GT SCH (17:00)
--- NOTE | 2022-06-01 17:37 | NUR ---
TOLERATING FEEDING FAIRLY WELL, CONTINUE IV ANTIBIOTICS. PM CARE RENDERED. REMAINS SR ON MONITOR
[2022-06-01 20:00] VITALS: BP 126/55
[2022-06-01] MEDS: ATORVASTATIN 40 MG TABLET GT SCH (20:28)
[2022-06-01] MEDS: ESCITALOPRAM OXALATE 10 MG TABLET GT SCH (20:28)
[2022-06-02 00:12] VITALS: BP 103/48
[2022-06-02] MEDS: DILTIAZEM HCL 30 MG TABLET GT SCH ×4 (00:31→17:48)
[2022-06-02] MEDS: IPRATROPIUM BROMIDE 0.5 MG/2.5 ML NEBU NEB SCH ×4 (01:19→19:39)
[2022-06-02] MEDS: PIPERACILLIN SODIUM/TAZOBACTAM 3.375 G in IV DEXTROSE 5% 50 ML IV SCH ×4 (02:14→20:30)
[2022-06-02 04:29] VITALS: BP 128/65
[2022-06-02] MEDS: PANTOPRAZOLE ORAL SUSPENSION 40 MG SUSPDR.PKT GT SCH (06:15)
[2022-06-02 06:57] LABS: HEMATOCRIT 26.2 % (31.2-41.9); MEAN CORPUSCULAR VOLUME 91.2 fL (75.5-95.3); PLATELET COUNT (AUTO) 102 K/uL (179-408)
[2022-06-02 07:30] LABS: CREATININE 1.1 mg/dL (0.6-1.3); PHOSPHOROUS 3.6 mg/dL (2.5-4.9); POTASSIUM 3.7 mmol/L (3.5-5.1)
[2022-06-02 08:00] VITALS: BP 117/63
--- NOTE | 2022-06-02 09:20 | NUR ---
CRITICAL LAB REPORTED. INR-6.56. NOTIFIED. HOLD COUMADIN PER .
[2022-06-02] MEDS: DOCUSATE SODIUM 100 MG/10 ML LIQUID UDC GT SCH ×2 (09:24→17:00)
[2022-06-02] MEDS: CULTURELLE CAPSULE GT SCH ×2 (09:25→20:30)
[2022-06-02] MEDS: DIVALPROEX SPRINKLE 125 MG CAP.SPRINK GT SCH ×2 (09:25→17:49)
[2022-06-02] MEDS: DIGOXIN 125 MCG TABLET GT SCH (09:26)
[2022-06-02] MEDS: levETIRAcetam 500 MG/5 ML LIQUID UDC GT SCH ×2 (09:26→20:30)
[2022-06-02] MEDS: FERROUS SULFATE 300 MG/5 ML LIQUID UDC GT SCH (09:26)
[2022-06-02] MEDS: METOPROLOL TARTRATE 50 MG TABLET GT SCH ×2 (09:27→20:31)
[2022-06-02] MEDS: MULTIVITAMINS,THERAPEUTIC TABLET GT SCH (09:28)
[2022-06-02] MEDS: SENNOSIDES 1 TABLET GT SCH (09:28)
[2022-06-02] MEDS: ASCORBIC ACID 500 MG TABLET GT SCH (09:28)
[2022-06-02] MEDS: CHOLECALCIFEROL 1,000 UNIT TABLET GT SCH (09:28)
[2022-06-02] MEDS: OLANZAPINE 5 MG TABLET GT SCH ×2 (09:29→17:48)
[2022-06-02] MEDS: FUROSEMIDE 20 MG TABLET PO SCH (09:30)
[2022-06-02] MEDS: MUPIROCIN 2% OINT 22 GM TUBE NS SCH ×2 (09:30→20:36)
[2022-06-02] MEDS: GUAIFENESIN LA 600 MG TABLET.SA PO SCH ×2 (09:30→20:30)
[2022-06-02] MEDS: CLOTRIMAZOLE 1% CREAM 30 GM TUBE TOP SCH ×2 (09:31→17:48)
[2022-06-02 11:45] VITALS: BP 120/46
[2022-06-02 15:50] VITALS: BP 109/45
--- NOTE | 2022-06-02 18:32 | NUR ---
PT AOX1; BEDREST; TOLERATED FEEDING WELL. ON 2L NC SATURATING 97-98. LOOSE STOOL WAS NOTED. HELD DOCUSATE. VANCO TROUGH 24.4 HOLD VANCO DOSE PER PHARMACY. ESTUARDO HEEL FOAM DRESSING WAS APPLIED FOR PROTECTION. HOB ELEVATED 40 DEG PER DAUGHTER REQUEST.NO ACUTE DISTRESS NOTED. WILL ENDORSED TO NOC SHIFT.
[2022-06-02] MEDS: ESCITALOPRAM OXALATE 10 MG TABLET GT SCH (20:31)
[2022-06-02] MEDS: ATORVASTATIN 40 MG TABLET GT SCH (20:31)
[2022-06-02 20:47] VITALS: BP 127/36
[2022-06-02] MEDS ORDERED: VANCOMYCIN IV 1,000 MG in IV DEXTROSE 5% 250 ML IV SCH (21:00)
[2022-06-03] VITALS: BP 124/46
[2022-06-03] MEDS: DILTIAZEM HCL 30 MG TABLET GT SCH ×4 (00:31→16:36)
[2022-06-03] MEDS: IPRATROPIUM BROMIDE 0.5 MG/2.5 ML NEBU NEB SCH ×4 (01:24→19:31)
[2022-06-03] MEDS: PIPERACILLIN SODIUM/TAZOBACTAM 3.375 G in IV DEXTROSE 5% 50 ML IV SCH ×4 (02:13→20:07)
[2022-06-03 04:00] VITALS: BP_SYST 113; BP_SYST 150; BP_DIAS 42; BP_DIAS 74
[2022-06-03] MEDS: PANTOPRAZOLE ORAL SUSPENSION 40 MG SUSPDR.PKT GT SCH (06:34)
[2022-06-03 07:16] LABS: CREATININE 1.6 mg/dL (0.6-1.3); POTASSIUM 3.2 mmol/L (3.5-5.1)
[2022-06-03] MEDS: ALBUTEROL SULFATE 2.5 MG/3 ML NEBU NEB PRN ×2 (07:34→13:16)
[2022-06-03] MEDS: levETIRAcetam 500 MG/5 ML LIQUID UDC GT SCH ×2 (08:33→20:08)
[2022-06-03] MEDS: FERROUS SULFATE 300 MG/5 ML LIQUID UDC GT SCH (08:33)
[2022-06-03] MEDS: CHOLECALCIFEROL 1,000 UNIT TABLET GT SCH (08:33)
[2022-06-03] MEDS: DIGOXIN 125 MCG TABLET GT SCH (08:38)
[2022-06-03] MEDS: CULTURELLE CAPSULE GT SCH ×2 (08:38→20:07)
[2022-06-03] MEDS: DIVALPROEX SPRINKLE 125 MG CAP.SPRINK GT SCH ×2 (08:38→16:35)
[2022-06-03] MEDS: OLANZAPINE 5 MG TABLET GT SCH ×2 (08:39→16:35)
[2022-06-03] MEDS: METOPROLOL TARTRATE 50 MG TABLET GT SCH ×2 (08:39→20:08)
[2022-06-03] MEDS: CLOTRIMAZOLE 1% CREAM 30 GM TUBE TOP SCH ×2 (08:39→16:37)
[2022-06-03] MEDS: GUAIFENESIN LA 600 MG TABLET.SA PO SCH ×2 (08:39→20:07)
[2022-06-03] MEDS: MULTIVITAMINS,THERAPEUTIC TABLET GT SCH (08:39)
[2022-06-03] MEDS: ASCORBIC ACID 500 MG TABLET GT SCH (08:53)
[2022-06-03] MEDS: SENNOSIDES 1 TABLET GT SCH (08:53)
[2022-06-03] MEDS: DOCUSATE SODIUM 100 MG/10 ML LIQUID UDC GT SCH ×2 (08:53→16:37)
[2022-06-03] MEDS: FUROSEMIDE 20 MG TABLET PO SCH (08:53)
[2022-06-03] MEDS: MUPIROCIN 2% OINT 22 GM TUBE NS SCH ×2 (08:54→20:09)
[2022-06-03] MEDS ORDERED: POTASSIUM CHLORIDE 20 MEQ POWDER PACKET GT ONE (10:15)
--- NOTE | 2022-06-03 10:55 | NUR ---
Critical Lab received PT 90.[address] TIPTON ask if VIT K is needed. Per DR TIPTON NO VIT K ordered.
[2022-06-03 11:30] VITALS: BP 108/42
[2022-06-03 15:59] VITALS: BP 102/36
[2022-06-03] MEDS ORDERED: WARFARIN SODIUM 5 MG TABLET GT SCH (17:00)
[2022-06-03 20:00] VITALS: BP 121/55
[2022-06-03] MEDS: ATORVASTATIN 40 MG TABLET GT SCH (20:07)
[2022-06-03] MEDS: ESCITALOPRAM OXALATE 10 MG TABLET GT SCH (20:07)
[2022-06-04] VITALS: BP 127/51
[2022-06-04] MEDS: DILTIAZEM HCL 30 MG TABLET GT SCH ×4 (00:27→17:56)
[2022-06-04] MEDS: IPRATROPIUM BROMIDE 0.5 MG/2.5 ML NEBU NEB SCH ×5 (02:07→20:18)
[2022-06-04] MEDS: PIPERACILLIN SODIUM/TAZOBACTAM 3.375 G in IV DEXTROSE 5% 50 ML IV SCH ×4 (02:11→22:46)
[2022-06-04 04:00] VITALS: BP 128/75
[2022-06-04] MEDS: PANTOPRAZOLE ORAL SUSPENSION 40 MG SUSPDR.PKT GT SCH (06:08)
[2022-06-04 07:15] LABS: CREATININE 1.7 mg/dL (0.6-1.3); DIGOXIN 1.1 ng/mL (0.9-2.0); POTASSIUM 3.6 mmol/L (3.5-5.1); VANCOMYCIN,RANDOM 25.7 ug/mL (18.0-26.0)
[2022-06-04] MEDS: IV NS 1000 ML 1,000 ML IV PRN (08:00)
--- NOTE | 2022-06-04 08:45 | NUR ---
NS started as ordered per DR Vincent. Aspiration precaution implemented. HOB ELEVATED. GT started as ordered for 22 hrs on. Pt is in no acute pain. Gtube placement audible in stomach. Suctioned pt whitish mucus suctioned via trumpet. Call light is within reach.
[2022-06-04] MEDS: DOCUSATE SODIUM 100 MG/10 ML LIQUID UDC GT SCH ×2 (08:46→17:46)
[2022-06-04] MEDS: CULTURELLE CAPSULE GT SCH ×2 (08:47→22:48)
[2022-06-04] MEDS: FERROUS SULFATE 300 MG/5 ML LIQUID UDC GT SCH (08:47)
[2022-06-04] MEDS: levETIRAcetam 500 MG/5 ML LIQUID UDC GT SCH ×2 (08:47→22:46)
[2022-06-04] MEDS: DIVALPROEX SPRINKLE 125 MG CAP.SPRINK GT SCH ×2 (08:47→17:46)
[2022-06-04] MEDS: DIGOXIN 125 MCG TABLET GT SCH (08:51)
[2022-06-04] MEDS: ASCORBIC ACID 500 MG TABLET GT SCH (08:56)
[2022-06-04] MEDS: SENNOSIDES 1 TABLET GT SCH (08:56)
[2022-06-04] MEDS: METOPROLOL TARTRATE 50 MG TABLET GT SCH ×2 (08:56→22:45)
[2022-06-04] MEDS: MULTIVITAMINS,THERAPEUTIC TABLET GT SCH (08:56)
[2022-06-04] MEDS: CHOLECALCIFEROL 1,000 UNIT TABLET GT SCH (08:57)
[2022-06-04] MEDS: OLANZAPINE 5 MG TABLET GT SCH ×2 (08:57→17:46)
[2022-06-04] MEDS: CLOTRIMAZOLE 1% CREAM 30 GM TUBE TOP SCH ×2 (08:59→17:56)
[2022-06-04] MEDS: MUPIROCIN 2% OINT 22 GM TUBE NS SCH ×2 (08:59→21:00)
[2022-06-04] MEDS: GUAIFENESIN LA 600 MG TABLET.SA PO SCH ×2 (09:06→21:00)
[2022-06-04 11:01] VITALS: BP 136/45
[2022-06-04] MEDS: ACETAMINOPHEN 325 MG TABLET PO PRN (14:38)
[2022-06-04 15:13] VITALS: BP 112/49
--- NOTE | 2022-06-04 18:49 | NUR ---
No bleeding noted. Pt is in no acute distress. Suctioned Multiple times throughout shift. No residual noted.
[2022-06-04 20:00] VITALS: BP 112/46
[2022-06-04] MEDS: ATORVASTATIN 40 MG TABLET GT SCH (21:00)
[2022-06-04] MEDS: ESCITALOPRAM OXALATE 10 MG TABLET GT SCH (22:45)
[2022-06-05] VITALS: BP 122/53
[2022-06-05] MEDS: DILTIAZEM HCL 30 MG TABLET GT SCH ×3 (00:53→13:04)
[2022-06-05] MEDS: IPRATROPIUM BROMIDE 0.5 MG/2.5 ML NEBU NEB SCH ×3 (01:10→13:11)
[2022-06-05] MEDS: PIPERACILLIN SODIUM/TAZOBACTAM 3.375 G in IV DEXTROSE 5% 50 ML IV SCH ×3 (02:51→13:10)
[2022-06-05 04:00] VITALS: BP 149/58
[2022-06-05 06:31] LABS: HEMATOCRIT 22.8 % (31.2-41.9); MEAN CORPUSCULAR HEMOGLOBIN 30.6 uug (24.7-32.8); PLATELET COUNT (AUTO) 159 K/uL (179-408)
[2022-06-05] MEDS: PANTOPRAZOLE ORAL SUSPENSION 40 MG SUSPDR.PKT GT SCH (06:44)
[2022-06-05 07:04] LABS: CREATININE 1.5 mg/dL (0.6-1.3); MAGNESIUM 2.3 mg/dL (1.8-2.4); PHOSPHOROUS 3.8 mg/dL (2.5-4.9); POTASSIUM 3.8 mmol/L (3.5-5.1); VANCOMYCIN,RANDOM 19.3 ug/mL (18.0-26.0)
[2022-06-05 08:10] VITALS: BP 127/84
[2022-06-05] MEDS: DOCUSATE SODIUM 100 MG/10 ML LIQUID UDC GT SCH (09:00)
[2022-06-05] MEDS: SENNOSIDES 1 TABLET GT SCH (09:00)
[2022-06-05] MEDS: levETIRAcetam 500 MG/5 ML LIQUID UDC GT SCH (09:39)
[2022-06-05] MEDS: FERROUS SULFATE 300 MG/5 ML LIQUID UDC GT SCH (09:39)
[2022-06-05] MEDS: OLANZAPINE 5 MG TABLET GT SCH (09:40)
[2022-06-05] MEDS: DIVALPROEX SPRINKLE 125 MG CAP.SPRINK GT SCH (09:40)
[2022-06-05] MEDS: MULTIVITAMINS,THERAPEUTIC TABLET GT SCH (09:41)
[2022-06-05] MEDS: CULTURELLE CAPSULE GT SCH (09:41)
[2022-06-05] MEDS: METOPROLOL TARTRATE 50 MG TABLET GT SCH (09:42)
[2022-06-05] MEDS: DIGOXIN 125 MCG TABLET GT SCH (09:42)
[2022-06-05] MEDS: CHOLECALCIFEROL 1,000 UNIT TABLET GT SCH (09:42)
[2022-06-05] MEDS: ASCORBIC ACID 500 MG TABLET GT SCH (09:42)
[2022-06-05] MEDS: MUPIROCIN 2% OINT 22 GM TUBE NS SCH (09:43)
[2022-06-05] MEDS: CLOTRIMAZOLE 1% CREAM 30 GM TUBE TOP SCH (09:43)
[2022-06-05] MEDS ORDERED: GUAIFENESIN SUGAR FREE 100 MG/5 ML UDC GT PRN (11:15)
[2022-06-05 12:00] VITALS: BP 130/50
[2022-06-05] MEDS: ALPRAZOLAM 0.25 MG TABLET GT PRN (14:03)
[2022-06-05] MEDS: IV NS 1000 ML 1,000 ML IV PRN (14:04)
[2022-06-05 15:54] VITALS: BP 136/59
--- NOTE | 2022-06-05 17:45 | NUR ---
pt is discharge. pt will go to [facility]. report given to sana jay. pt is pickup by [facility] ambulance service. all belongings accounted for. klaudia midline was not removed per sana jay for abx continuation at facility. nasal trumpet intact for suctioning. gt site patent and intact. vitals wnl. yanely sal[place] was informed with transfer.
[2022-06-05] MEDS ORDERED: GUAIFENESIN LA 600 MG TABLET.SA PO SCH (21:00)
== END 2022-06-05 17:45 | DRG 720 ==
LOC: ER 01:47 → TELE3 08:51
PROC: 05H533Z Insertion of Infusion Device into Right Subclavian Vein, Percutaneous Approach (ICD-10-PCS; principal; 2022-05-28)
PROC: B546ZZA Ultrasonography of Right Subclavian Vein, Guidance (ICD-10-PCS; principal; 2022-05-28)
DX: A41.9 Sepsis, unspecified organism (principal); J96.01 Acute respiratory failure with hypoxia; J69.0 Pneumonitis due to inhalation of food and vomit; G93.49 Other encephalopathy; F03.90 Unspecified dementia, unspecified severity, without behavioral disturbance, psychotic disturbance, mood disturbance, and anxiety; I48.20 Chronic atrial fibrillation, unspecified; E11.9 Type 2 diabetes mellitus without complications; G40.909 Epilepsy, unspecified, not intractable, without status epilepticus; I50.32 Chronic diastolic (congestive) heart failure; R13.10 Dysphagia, unspecified; Z95.0 Presence of cardiac pacemaker; Z95.2 Presence of prosthetic heart valve; Z79.01 Long term (current) use of anticoagulants; Z20.822 Contact with and (suspected) exposure to COVID-19; Z74.01 Bed confinement status; Z86.73 Personal history of transient ischemic attack (TIA), and cerebral infarction without residual deficits; I11.0 Hypertensive heart disease with heart failure; R79.1 Abnormal coagulation profile; T45.515A Adverse effect of anticoagulants, initial encounter; Z93.1 Gastrostomy status; Z79.899 Other long term (current) drug therapy; Y92.129 Unspecified place in nursing home as the place of occurrence of the external cause
CPT/HCPCS: 36415; 71045; 83735; 84100; 84443; 84484; 85025; 85610; 85651; 85730; 87040; 87400; 93005; 93307; 94640; A6209; A6213; C9113; G0378; J1940; J1956; J2543; J3370; J3480; J3490; J3590; J7040; J7050